=== PATIENT | male | born 1980 | race Caucasian/White ===

== ENCOUNTER 2016-08-23 15:36 | Emergency (ER) | payer MEDICARE, OTHER ==
[~2016-08-23] VITALS: Ht 182.9 cm; Wt 90.0 kg
[~2016-08-23 15:36] MED LIST: ABIL5TAB6 PO; ZOLO50TA PO
[2016-08-23 15:39] VITALS: BP 147/80; PULSE 78; RESP 20; TEMP 97.8; O2SAT 98
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
== END 2016-08-23 18:28 | disposition home or self-care (01) ==
LOC: NETRI 15:36
DX: Z86.59 Personal history of other mental and behavioral disorders (principal); F17.200 Nicotine dependence, unspecified, uncomplicated
CPT/HCPCS: 99281

== ENCOUNTER 2016-09-11 12:29 | Emergency (ER) | payer MEDICARE, OTHER ==
[~2016-09-11] VITALS: Ht 182.9 cm; Wt 95.0 kg
[2016-09-11 12:31] VITALS: BP 139/75; PULSE 104; RESP 16; TEMP 97.8; O2SAT 97
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
== END 2016-09-11 13:50 | disposition home or self-care (01) ==
LOC: NEPE 12:29
DX: F43.21 Adjustment disorder with depressed mood (principal); F17.200 Nicotine dependence, unspecified, uncomplicated; Z86.59 Personal history of other mental and behavioral disorders
CPT/HCPCS: 99281

== ENCOUNTER 2016-10-30 06:51 | Emergency (ER) | payer MEDICARE, OTHER ==
[~2016-10-30] VITALS: Ht 182.9 cm; Wt 82.0 kg
[2016-10-30 06:53] VITALS: BP 137/84; PULSE 96; RESP 16; TEMP 98; O2SAT 98
[2016-10-30] MEDS ORDERED: LEXA5TAB PO (07:24)
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
[2016-10-30 07:42] LABS: AUTOMATED NEUTROPHIL # 11.2 TH/MM3 (1.8-7.7); BASOPHIL # 0.1 TH/MM3 (0-0.2); BASOPHIL % 0.4 % (0.0-2.0); EOSINOPHIL % 0.3 % (0.0-4.0); HEMATOCRIT 47.5 % (39.0-51.0); HEMO FLAGS DIFF FINAL; LYMPH % 14.1 % (9.0-44.0); MEAN CELL VOLUME 85.8 FL (80.0-100.0); MEAN CORPUSCULAR HEMOGLOBIN 29.6 PG (27.0-34.0); MEAN CORPUSCULAR HGB CONC 34.5 % (32.0-36.0); MONO % 6.3 % (0.0-8.0); NEUT % 78.9 % (16.0-70.0); PLATELET COUNT 280 TH/MM3 (150-450); RED BLOOD COUNT 5.53 MIL/MM3 (4.50-5.90); RED CELL DISTRIBUTION WIDTH 13.5 % (11.6-17.2); WHITE BLOOD COUNT 14.1 TH/MM3 (4.0-11.0)
[2016-10-30 07:56] LABS: ALT (GPT) 23 U/L (12-78); ANION GAP 7 MEQ/L (5-15); AST (GOT) 20 U/L (15-37); BICARBONATE 31.7 MEQ/L (21.0-32.0); BLOOD UREA NITROGEN 13 MG/DL (7-18); CHLORIDE 101 MEQ/L (98-107); GLOMERULAR FILTRATION RATE 100 ML/MIN (>89); SODIUM (NA) 140 MEQ/L (136-145)
[2016-10-30 07:58] LABS: ALKALINE PHOSPHATASE 76 U/L (45-117); TOTAL BILIRUBIN ADULT 0.3 MG/DL (0.2-1.0)
[2016-10-30 09:02] LABS: AMPHETAMINE, URINE NEG (NEG); BARBITURATES, URINE NEG (NEG); COCAINE, URINE NEG (NEG)
[2016-10-30 10:00] VITALS: BP 112/69; PULSE 80; RESP 18; TEMP 98.3; O2SAT 100
[2016-10-30 13:12] VITALS: BP 108/61; PULSE 78; RESP 18; O2SAT 100
[2016-10-30 14:55] VITALS: BP 114/78; PULSE 92; RESP 18; TEMP 98.3; O2SAT 98
[2016-10-30 18:10] VITALS: BP 126/61; PULSE 91; RESP 18; TEMP 97.8; O2SAT 99
[2016-10-30 22:00] VITALS: BP 126/67; PULSE 77; RESP 18; O2SAT 99
[2016-10-31 02:00] VITALS: BP 131/59; PULSE 74; RESP 18; O2SAT 99
[2016-10-31 06:00] VITALS: BP 102/58; PULSE 60; RESP 18; O2SAT 97
[2016-10-31 09:40] VITALS: BP 102/58; PULSE 60; RESP 18; O2SAT 97
== END 2016-10-31 11:41 | disposition home or self-care (01) ==
LOC: NEPE 06:51 → NEPJ 10-31 11:41
DX: F32.9 Major depressive disorder, single episode, unspecified (principal); Z79.899 Other long term (current) drug therapy
CPT/HCPCS: 80053; 80307; 85025; 99283

== ENCOUNTER 2016-11-30 13:35 | Inpatient (IN) | payer MEDICARE, OTHER ==
[~2016-11-30] VITALS: Ht 182.9 cm; Wt 74.2 kg
[~2016-11-30 13:35] MED LIST changes: +LEXA5TAB PO; -ZOLO50TA PO
[2016-11-30 13:58] VITALS: BP 146/88; PULSE 112; RESP 20; TEMP 98.6; O2SAT 98
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
[2016-11-30 14:32] LABS: AUTOMATED NEUTROPHIL # 4.6 TH/MM3 (1.8-7.7); BASOPHIL % 0.6 % (0.0-2.0); EOSINOPHIL # 0.2 TH/MM3 (0-0.4); EOSINOPHIL % 2.5 % (0.0-4.0); HEMATOCRIT 49.8 % (39.0-51.0); HEMO FLAGS DIFF FINAL; LYMPH % 26.6 % (9.0-44.0); LYMPHOCYTE # 2.1 TH/MM3 (1.0-4.8); MEAN CELL VOLUME 85.3 FL (80.0-100.0); MEAN CORPUSCULAR HEMOGLOBIN 29.7 PG (27.0-34.0); MEAN CORPUSCULAR HGB CONC 34.8 % (32.0-36.0); MONO % 11.2 % (0.0-8.0); NEUT % 59.1 % (16.0-70.0); PLATELET COUNT 281 TH/MM3 (150-450); RED BLOOD COUNT 5.84 MIL/MM3 (4.50-5.90); RED CELL DISTRIBUTION WIDTH 13.5 % (11.6-17.2); WHITE BLOOD COUNT 7.7 TH/MM3 (4.0-11.0)
[2016-11-30 14:59] LABS: ALT (GPT) 16 U/L (12-78); ANION GAP 8 MEQ/L (5-15); AST (GOT) 12 U/L (15-37); BICARBONATE 27.1 MEQ/L (21.0-32.0); BLOOD UREA NITROGEN 9 MG/DL (7-18); CHLORIDE 106 MEQ/L (98-107); GLOMERULAR FILTRATION RATE 74 ML/MIN (>89); SODIUM (NA) 141 MEQ/L (136-145)
[2016-11-30 15:01] LABS: ACETAMINOPHEN LESS THAN 2.0 MCG/ML (10.0-30.0); ALKALINE PHOSPHATASE 90 U/L (45-117); TOTAL BILIRUBIN ADULT 0.6 MG/DL (0.2-1.0)
[2016-11-30 15:36] LABS: AMPHETAMINE, URINE NEG (NEG); BARBITURATES, URINE NEG (NEG); COCAINE, URINE NEG (NEG)
[2016-11-30 15:46] LABS: BLOOD, URINE NEG (NEG); GLUCOSE,URINE NEG (NEG); HYALINE CAST, URINE 4 /lpf (RARE); KETONE, URINE NEG (NEG); MUCUS URINE MANY /lpf (OCC); NITRITE,URINE NEG (NEG); SQUAMOUS EPITHELIAL CELL URINE <1 /hpf (0-5); URINE COLOR YELLOW (YELLW/STRAW)
[2016-11-30 15:51] LABS: COMMENT (UR) CULT NOT INDICATED; CULTURE IF INDICATED CULT NOT INDICATED
[2016-11-30 16:00] VITALS: BP 130/77; PULSE 98; RESP 18; TEMP 97.7; O2SAT 95
[2016-11-30 18:15] VITALS: BP 125/64; PULSE 100; RESP 18; O2SAT 96
[2016-11-30] MEDS ORDERED: ZIPRASIDONE HCL 60 MG CAP PO ONE (20:15)
[2016-11-30] MEDS ORDERED: diphenhydrAMINE HCL 50 MG CAP PO PRN (20:15)
[2016-11-30] MEDS ORDERED: ALUMINUM/MAGNESIUM/SIMETH 30 ML CUP PO PRN (20:30)
[2016-11-30] MEDS ORDERED: MAGNESIUM HYDROXIDE SUSP 30 ML CUP PO PRN (20:30)
[2016-11-30 21:00] VITALS: BP 130/64; PULSE 82; RESP 16; TEMP 97.6
[2016-11-30] MEDS: REMOVE OLD NICOTINE PATCH T-DERMAL SCH (21:00)
[2016-11-30] MEDS: ZIPRASIDONE HCL 60 MG CAP PO SCH (21:00)
[2016-12-01 05:57] VITALS: BP 118/56; PULSE 79; RESP 18; TEMP 97.5; O2SAT 98
[2016-12-01] MEDS: ZIPRASIDONE HCL 60 MG CAP PO SCH ×2 (08:33→21:00)
[2016-12-01] MEDS: NICOTINE 21 MG/24 HR PATCH T-DERMAL SCH (08:34)
[2016-12-01] MEDS ORDERED: ALUMINUM/MAGNESIUM/SIMETH 30 ML CUP PO PRN (16:00)
[2016-12-01] MEDS ORDERED: hydrOXYzine HCL 50 MG TAB PO PRN (16:00)
[2016-12-01] MEDS ORDERED: diphenhydrAMINE HCL 50 MG CAP PO PRN (16:00)
[2016-12-01] MEDS ORDERED: MAGNESIUM HYDROXIDE SUSP 30 ML CUP PO PRN (16:00)
[2016-12-01] MEDS ORDERED: ACETAMINOPHEN 325 MG TAB PO PRN (16:00)
--- NOTE | 2016-12-01 16:10 | HHI.HP ---
Provisional Diagnosis Admission Date Nov 30, 2016 at 20:49 [place] I. Schizophrenia chronic paranoid type f 20.0 Certification of Person's Competence To Provide Express and Informed Consent I have personally examined Marv Goodson , a person being served at [facility] on, Dec 01, 2016 15:57. Express and informed consent means consent voluntarily given in writing, by a competent person, after sufficient explanation and disclosure of the subject matter involved to enable the person to make a knowing and willful decision without any element of force, fraud, deceit, duress, or other form of constraint or coercion. This person is 18 years of age or older, is not now known to be incompetent to consent to treatment with a guardian advocate, and does not have a health care surrogate or proxy currently making medical treatment decisions. I have found this person to be one of the following: [] Competent to provide express and informed consent, as defined above, for voluntary admission to this facility and is competent to provide express and informed consent for treatment. He/she has the consistent capacity to make well reasoned, willful, and knowing decisions concerning his or her medical or mental health treatment. The person fully and consistently understands the purpose of the admission for examination/placement and is fully capable of personally exercising all rights assured under [place] [] Incompetent to provide express and informed consent to voluntary admission, and this is incompetent to provide express and informed consent to treatment. The person must be transferred to involuntary status and a petition for a guardian advocate filed with the Circuit Court. [xx] Refusing to provide express and informed consent to voluntary admission but is competent to provide express and informed consent for treatment. The person must be discharged or transferred to involuntary status. Form shall be completed within 24 hours of a person's arrival at the receiving facility and filed in the clinical record of each person: 1. Admitted on a voluntary basis 2. Permitted to provide express and informed consent to his/her own treatment 3. Allowed to transfer from involuntary to voluntary status 4. Prior to permitting a person to consent to his or her own treatment after having been previously found incompetent to consent to treatment. History of Present Illness Capacity: Lacks Capacity (patient lacks capacity to agree to admission, patient has capacity to agree with medication) HPI Patient is a 36-year-old white male note was multiple prior contacts has been seen there 3 times prior this year comes here under [place] act by the [place] [employer] dated 11/30/16 at 1:25 PM that document reviewed states pacing the that subject to schizophrenic and off his meds for 2 weeks he is hearing voices and was located at the parking lot yelling at pedestrians patient seen screened in ED urine toxicology negative bladder: Negative. Patient seen in his room on 2700 with nurse Deric. Patient laying in bed patient markedly disheveled scruffy fairly darkly Tanned and Somewhat Malodorous. But Appears His Recognize Me from Prior Contact. States He Lives near a Local Restaurant, Patient Is a Girlfriend, Some Place to Live. Though He Feels He Has To Defend Her Because of People in the Neighborhood. He States He Was Yelling As Mentioned to Address the People in the Neighborhood. He Does Acknowledge Auditory Hallucinations. Patient does admit to noncompliance of medication. Though he states he is a client through [place] act. For now we will restart medications that have been noted on the med reconciliation. I do feel he meets criteria for involuntary hospitalization of the [place] act thus I'll do first opinion requests second opinion that feel his capacity to sign for his medication hopeless be fairly short stay and follow-up outpatient [facility] Review of Systems Constitutional: DENIES: Diaphoretic episodes, Fatigue, Fever, Weight gain, Weight loss, Chills, Dizziness, Change in appetite, Night Sweats Endocrine: DENIES: Heat/cold intolerance, Polydipsia, Polyuria, Polyphagia Eyes: DENIES: Blurred vision, Diplopia, Eye inflammation, Eye pain, Vision loss , Photosensitivity, Double Vision Ears, nose, mouth, throat: DENIES: Tinnitus, Hearing loss, Vertigo, Nasal discharge, Oral lesions, Throat pain, Hoarseness, Ear Pain, Running Nose, Epistaxis, Sinus Pain, Toothache, Odynophagia Respiratory: DENIES: Apneas, Cough, Snoring, Wheezing, Hemoptysis, Sputum production, Shortness of breath Cardiovascular: DENIES: Chest pain, Palpitations, Syncope, Dyspnea on Exertion , PND, Lower Extremity Edema, Orthopnea, Claudication Genitourinary: DENIES: Sexual dysfunction, Urinary frequency, Urinary incontinence, Urgency, Hematuria, Dysuria, Nocturia, Penile Discharge, Testicular Pain, Testicular Swelling Musculoskeletal: DENIES: Joint pain, Muscle aches, Stiffness, Joint Swelling, Back pain, Neck pain Integumentary: DENIES: Abnormal pigmentation, Nail changes, Pruritus, Rash Hematologic/lymphatic: DENIES: Bruising, Lymphadenopathy Immunologic/allergic: DENIES: Eczema, Urticaria Neurologic: DENIES: Abnormal gait, Headache, Localized weakness, Paresthesias, Seizures, Speech Problems, Tremor, Poor Balance Psychiatric: COMPLAINS OF: Hallucinations, Agitation Past Psych History Psychological trauma history Unlit distended patient psychosis Violence risk - others (6 mos) Patient threatening pedestrians passersby Violence risk - self (6 mos) Denies Substance Abuse History Drugs/Alcohol past 12 months Denies numbness somewhat vague about use of marijuana Past Family Social History Coded Allergies: *MDRO Multi-Drug Resistant Organism (Verified Allergy, Unknown, 10/30/16) MRSA Reported Medications Escitalopram (Lexapro)5 Mg Tab5 Mg PO DAILY #30 TAB Ref 0 10/30/16 Current Medications Medications (Trade) Dose Ordered Sig/Pati Route Start Time Stop Time Status Last Admin (Geodon) 60 mg BID PO 11/30/16 21:00 12/01/16 08:33 (Benadryl) 50 mg HS PRN PO 11/30/16 20:15 (Atarax) 50 mg Q6H PRN PO 11/30/16 20:30 (Tylenol) 650 mg Q4H PRN PO 11/30/16 20:30 (Milk Of Magnesia Liq) 30 ml DAILY PRN PO 11/30/16 20:30 (Mag-Al Plus Susp Liq) 30 ml Q6H PRN PO 11/30/16 20:30 (Habitrol 21 Mg Patch.24 Hr) 1 patch DAILY T-DERMAL 12/01/16 09:00 Miscellaneous Information 1 HS T-DERMAL 11/30/16 21:00 Family History Unknown at this time Social History Patient lives with girlfriend Patient's Strengths (min. 2) Patient verbal able to access health care Physical Exam She seen screened in ED exam reviewed and agreed with patient laying quietly in his bed on 2700 and no apparent distress, no respiratory distress. Is darkly suntanned. Patient will 4 extremities without difficulty on no abnormal motor movements noted Vital Signs Vital Signs Date Time Temp Pulse Resp B/P Pulse Ox O2 Delivery O2 Flow Rate FiO2 12/01/16 05:57 97.5 79 18 118/56 98 11/30/16 18:15 Room Air Mental Status Examination Alert oriented thin slender darkly tanned to heartedly disheveled white male with poor eye contact Appearance Disheveled Speech: Rapid, Circumstantial, Tangential Orientation: x3 Memory: Unremarkable Thought Process: Circumstantial, Tangential, Thought Blocking (mildly) Thought Content: Paranoid Language Poor to fair Fund of Knowledge Poor Hallucination Type: Auditory Attention and Concentration: Other (poor) Suicidal Ideation: No Previous Suicide Attempts: No Homicidal Ideation: No (denies) Previous Homicide Attempts: No Insight: Poor Judgment: Poor Affect: Other (decreased range and intensity) Mood: Irritable (somewhat), Other (restricted) Motor Activity: Normal gait Assessment & Plan Problem List: (1) Schizophrenia, paranoid type ICD Code: F20.0 Assessment & Plan Estimated LOS patient does meet criteria for involuntary psychiatric hospitalization I'll do first opinion requests second opinion. I feel he has capacity to sign for his medications. We will restart his medications. Discharge Planning To be determined Request HC Surrog/Guard Advoc?: No Agustin Quigley MD Dec 01, 2016 16:10
[2016-12-01 20:03] VITALS: BP 92/50; PULSE 66; RESP 18; TEMP 97.7; O2SAT 96
[2016-12-01] MEDS: REMOVE OLD NICOTINE PATCH T-DERMAL SCH (21:00)
[2016-12-01] MEDS: hydrOXYzine HCL 50 MG TAB PO PRN (21:09)
[2016-12-02 05:47] VITALS: BP 95/51; PULSE 68; RESP 17; TEMP 97.3; O2SAT 98
[2016-12-02] MEDS: NICOTINE 21 MG/24 HR PATCH T-DERMAL SCH (09:00)
--- NOTE | 2016-12-02 09:40 | HHI.PYPN ---
Subjective Remarks Patient seen in [facility] with nurse Irasema. Patient continues somewhat intense silly childlike thus singly wants to go home but the same time appears to be responding to internal stimuli looking over his right shoulder. He is winking at me with his right eye then lifting up her shirt the looking down his trousers. Will increase Geodon to 80 mg twice a day.. Patient remains quite psychotic and delusional Review of Systems Except as stated in HPI: all other systems reviewed are Neg Objective Alert: Yes [place]: Person, Place Mood: Anxious, Calm Affect: Other (slight increase range and intensity) Memory Intact: Comment (fair) Hallucinations: Auditory (appears to be responding to internal stimuli) Delusions: Yes Delusion Type: Grandiose (somewhat) Suicidal: Ideation (denies) Homicidal: Ideation (denies) Insight/Judgment Poor Vitals/IOs Vital Signs Date Time Temp Pulse Resp B/P Pulse Ox O2 Delivery O2 Flow Rate FiO2 12/02/16 05:47 97.3 68 17 95/51 98 11/30/16 18:15 Room Air Assessment & Plan Problem List: (1) Schizophrenia, paranoid type ICD Code: F20.0 Assessment & Plan Estimated LOS: days patient remains quite psychotic and delusional, C medication adjustments above Justification for Cont. Inpt. At this time patient will decompensate if placed in a lower level of care Discharge Planning To be determined Request HC Surrog/Guard Advoc?: Agustin Coles MD Dec 02, 2016 09:40
--- NOTE | 2016-12-02 17:51 | PD.CONS ---
Provisional Diagnosis Admission Date Nov 30, 2016 at 20:49 [place] I. Schizophrenia chronic paranoid type f 20.0 History of Present Illness Service Psychiatry Consult Requested By Primary Care Physician No Primary Care Physician HPI Dr. Quigley's note:Patient is a 36-year-old white male note was multiple prior contacts has been seen there 3 times prior this year comes here under [place] act by the [employer] dated 11/30/16 at 1:25 PM that document reviewed states pacing the that subject to schizophrenic and off his meds for 2 weeks he is hearing voices and was located at the parking lot yelling at pedestrians patient seen screened in ED urine toxicology negative bladder: Negative. Patient seen in his room on 2700 with nurse Deric. Patient laying in bed patient markedly disheveled scruffy fairly darkly Tanned and Somewhat Malodorous. But Appears His Recognize Me from Prior Contact. States He Lives near a Local Restaurant, Patient Is a Girlfriend, Some Place to Live. Though He Feels He Has To Defend Her Because of People in the Neighborhood. He States He Was Yelling As Mentioned to Address the People in the Neighborhood. He Does Acknowledge Auditory Hallucinations. Patient does admit to noncompliance of medication. Though he states he is a client through [place] act. For now we will restart medications that have been noted on the med reconciliation. I do feel he meets criteria for involuntary hospitalization of the [place] act thus I'll do first opinion requests second opinion that feel his capacity to sign for his medication hopeless be fairly short stay and follow-up outpatient [facility] Pt. remains psychotic with paranoid delusions. Feels there are people in the neighborhood who wish to harm his girlfriend. Cont to report aud halllucinations. Review of Systems Except as stated in HPI: all other systems reviewed are Neg Past Family Social History Coded Allergies: *MDRO Multi-Drug Resistant Organism (Verified Allergy, Unknown, 10/30/16) MRSA Reported Medications Escitalopram (Lexapro)5 Mg Tab5 Mg PO DAILY #30 TAB Ref 0 10/30/16 Current Medications Medications (Trade) Dose Ordered Sig/Pati Route Start Time Stop Time Status Last Admin (Benadryl) 50 mg HS PRN PO 11/30/16 20:15 (Atarax) 50 mg Q6H PRN PO 11/30/16 20:30 6/11/17 21:09 (Tylenol) 650 mg Q4H PRN PO 11/30/16 20:30 (Milk Of Magnesia Liq) 30 ml DAILY PRN PO 11/30/16 20:30 (Mag-Al Plus Susp Liq) 30 ml Q6H PRN PO 11/30/16 20:30 (Habitrol 21 Mg Patch.24 Hr) 1 patch DAILY T-DERMAL 12/01/16 09:00 Miscellaneous Information 1 HS T-DERMAL 11/30/16 21:00 (Geodon) 80 mg BID PO 12/02/16 21:00 Family History Pos for schiz Social History Unemployed. Receives disability. Patient's Strengths (min. 2) Patient verbal able to access health care Physical Exam Vital Signs Vital Signs Date Time Temp Pulse Resp B/P Pulse Ox O2 Delivery O2 Flow Rate FiO2 12/02/16 05:47 97.3 68 17 95/51 98 11/30/16 18:15 Room Air Mental Status Examination Speech: Rapid, Circumstantial, Tangential Orientation: x3 Memory: Unremarkable Thought Process: Loose Association, Tangential, Thought Blocking (mildly) Thought Content: Paranoid Hallucination Type: Auditory Attention and Concentration: Other (poor) Suicidal Ideation: No Previous Suicide Attempts: No Homicidal Ideation: No (denies) Previous Homicide Attempts: No Insight: Poor Judgment: Poor Affect: Other (decreased range and intensity) Mood: Irritable (somewhat), Other (restricted) Motor Activity: Normal gait Assessment & Plan Problem List: (1) Schizophrenia, paranoid type ICD Code: F20.0 Assessment & Plan Estimated LOS: days Agree with civil committment and treatment. Request HC Surrog/Guard Advoc?: No Mart Andrade MD Dec 02, 2016 17:51
[2016-12-02 17:59] VITALS: BP 100/68; PULSE 75; RESP 18; TEMP 97.3; O2SAT 97
[2016-12-02] MEDS: REMOVE OLD NICOTINE PATCH T-DERMAL SCH (21:00)
[2016-12-02] MEDS: ZIPRASIDONE HCL 80 MG CAP PO SCH (21:05)
[2016-12-03 05:44] VITALS: BP 98/52; PULSE 81; RESP 18; TEMP 98.8; O2SAT 97
[2016-12-03] MEDS: ZIPRASIDONE HCL 80 MG CAP PO SCH ×2 (09:00→21:36)
[2016-12-03] MEDS: NICOTINE 21 MG/24 HR PATCH T-DERMAL SCH (09:11)
--- NOTE | 2016-12-03 11:49 | HHI.PYPN ---
Subjective Remarks Patient seen in [facility] with floor staff, chart review, patient compliant medications. Patient still showing poor hygiene as if he has not showered yet. He continues markedly distracted acknowledging continued auditory hallucinations of a somewhat disturbing nature. For now continue treatment Review of Systems Except as stated in HPI: all other systems reviewed are Neg Objective Alert: Yes [place]: Person, Place Mood: Anxious, Calm Affect: Other (slight increase range and intensity) Memory Intact: Comment (fair) Hallucinations: Auditory (appears to be responding to internal stimuli) Delusions: Yes Delusion Type: Grandiose (somewhat) Suicidal: Ideation (denies) Homicidal: Ideation (denies) Insight/Judgment Poor Vitals/IOs Vital Signs Date Time Temp Pulse Resp B/P Pulse Ox O2 Delivery O2 Flow Rate FiO2 12/03/16 05:44 98.8 81 18 98/52 97 11/30/16 18:15 Room Air Assessment & Plan Problem List: (1) Schizophrenia, paranoid type ICD Code: F20.0 Assessment & Plan Estimated LOS: days patient continues quite psychotic auditory hallucinations. Compliant medications. For now continue treatment Justification for Cont. Inpt. At this time patient will decompensate if placed on the lower level of care Discharge Planning To be determined Request HC Surrog/Guard Advoc?: No Agustin Quigley MD Dec 03, 2016 11:49
[2016-12-03 18:54] VITALS: BP 113/63; PULSE 59; RESP 18; TEMP 97.1; O2SAT 99
[2016-12-03] MEDS: REMOVE OLD NICOTINE PATCH T-DERMAL SCH (21:00)
[2016-12-04 05:43] VITALS: BP 99/62; PULSE 92; RESP 17; TEMP 97.9; O2SAT 98
[2016-12-04] MEDS: NICOTINE 21 MG/24 HR PATCH T-DERMAL SCH (08:14)
[2016-12-04] MEDS: ZIPRASIDONE HCL 80 MG CAP PO SCH ×2 (08:15→20:20)
--- NOTE | 2016-12-04 11:43 | HHI.PYPN ---
Subjective Remarks Patient seen in [facility] with nurse Edilberto and family practice resident Star. Patient just got out of the shower appears he is not a fairly decent job of washing himself and his hair. He is compliant with medication. Auditory hallucinations continue but are somewhat decreased intensity the continues a bizarreness and paranoia with him at this time. For now continue treatment Objective Alert: Yes [place]: Person, Place Mood: Anxious, Calm Affect: Other (slight increase range and intensity) Memory Intact: Comment (fair) Hallucinations: Auditory (appears to be responding to internal stimuli) Delusions: Yes Delusion Type: Grandiose (somewhat) Suicidal: Ideation (denies) Homicidal: Ideation (denies) Insight/Judgment Poor Vitals/IOs Vital Signs Date Time Temp Pulse Resp B/P Pulse Ox O2 Delivery O2 Flow Rate FiO2 12/04/16 05:43 97.9 92 17 99/62 98 11/30/16 18:15 Room Air Assessment & Plan Problem List: (1) Schizophrenia, paranoid type ICD Code: F20.0 Assessment & Plan Estimated LOS: days patient continue psychotic somewhat disorganized. Continues to make symptoms there to protect type hand gestures, the voices continue also though it appears she has been no significant behavioral problems Justification for Cont. Inpt. At this time patient will decompensate if place to the lower level of care Discharge Planning To be determined Request HC Surrog/Guard Advoc?: Agustin Coles MD Dec 04, 2016 11:42
[2016-12-04 18:23] VITALS: BP 123/68; PULSE 90; RESP 16; TEMP 99.2; O2SAT 98
[2016-12-04] MEDS: REMOVE OLD NICOTINE PATCH T-DERMAL SCH (20:20)
[2016-12-05 05:57] VITALS: BP 106/75; PULSE 85; RESP 16; TEMP 97.8; O2SAT 98
[2016-12-05] MEDS: ZIPRASIDONE HCL 80 MG CAP PO SCH ×2 (09:17→21:00)
[2016-12-05] MEDS: NICOTINE 21 MG/24 HR PATCH T-DERMAL SCH (09:18)
--- NOTE | 2016-12-05 13:57 | HHI.PYPN ---
Subjective Remarks Patient [place]. [place] act has been [place], patient states is willing to sign voluntary stay voluntarily get further treatment. Thus I will lift [place] act and allow the patient to sign voluntary. Continues somewhat disorganized responding to internal stimuli intense making some stereotypic gestures with his hands. Is compliant with his medication Review of Systems Except as stated in HPI: all other systems reviewed are Neg Objective Alert: Yes [place]: Person, Place Mood: Anxious, Calm Affect: Other (slight increase range and intensity) Memory Intact: Comment (fair) Hallucinations: Auditory (appears to be responding to internal stimuli) Delusions: Yes Delusion Type: Grandiose (somewhat) Suicidal: Ideation (denies) Homicidal: Ideation (denies) Insight/Judgment Poor Vitals/IOs Vital Signs Date Time Temp Pulse Resp B/P Pulse Ox O2 Delivery O2 Flow Rate FiO2 12/05/16 05:57 97.8 85 16 106/75 98 Assessment & Plan Problem List: (1) Schizophrenia, paranoid type ICD Code: F20.0 Assessment & Plan Estimated LOS: days patient continue psychotic and delusional, though compliant medications. [place] act was [place] [address] patient will be allowed to sign voluntary patient states she is willing to do that Justification for Cont. Inpt. At this time patient will decompensate then placed in a lower level of care Discharge Planning To be determined Request HC Surrog/Guard Advoc?: No Agustin Quigley MD Dec 05, 2016 13:57
[2016-12-05 16:54] VITALS: BP 121/59; PULSE 73; RESP 17; TEMP 98.3; O2SAT 99
[2016-12-05] MEDS: REMOVE OLD NICOTINE PATCH T-DERMAL SCH (21:00)
[2016-12-06 05:35] VITALS: BP 105/54; PULSE 93; RESP 18; TEMP 97.3; O2SAT 99
[2016-12-06] MEDS: ZIPRASIDONE HCL 80 MG CAP PO SCH ×2 (08:27→21:12)
[2016-12-06] MEDS: NICOTINE 21 MG/24 HR PATCH T-DERMAL SCH (08:27)
--- NOTE | 2016-12-06 13:33 | HHI.PYPN ---
Subjective Remarks Patient seen in his room with floor staff, chart reviewed, patient compliant medications, patient continues to show some delays in his responses as if responding to internal stimuli he continues to do some stereotype hand movements will increase Geodon to 120 mg twice a day Review of Systems Except as stated in HPI: all other systems reviewed are Neg Objective Alert: Yes [place]: Person, Place Mood: Anxious, Calm Affect: Other (slight increase range and intensity) Memory Intact: Comment (fair) Hallucinations: Auditory (appears to be responding to internal stimuli) Delusions: Yes Delusion Type: Grandiose (somewhat) Suicidal: Ideation (denies) Homicidal: Ideation (denies) Insight/Judgment Poor Vitals/IOs Vital Signs Date Time Temp Pulse Resp B/P Pulse Ox O2 Delivery O2 Flow Rate FiO2 12/06/16 05:35 97.3 93 18 105/54 99 Assessment & Plan Problem List: (1) Schizophrenia, paranoid type ICD Code: F20.0 Assessment & Plan Estimated LOS: days patient continues psychotic delusional with vague auditory hallucinations see medication adjustment above Justification for Cont. Inpt. At this time patient decompensate and placed in a lower level of care Discharge Planning To be determined Request HC Surrog/Guard Advoc?: No Agustin Quigley MD Dec 06, 2016 13:33
[2016-12-06 17:26] VITALS: BP 107/57; PULSE 76; RESP 18; TEMP 97.4; O2SAT 97
[2016-12-06] MEDS: REMOVE OLD NICOTINE PATCH T-DERMAL SCH (21:00)
[2016-12-07 06:08] VITALS: BP 109/62; PULSE 90; RESP 18; TEMP 98.7; O2SAT 95
[2016-12-07] MEDS: ZIPRASIDONE HCL 80 MG CAP PO SCH ×2 (08:47→20:08)
[2016-12-07] MEDS: NICOTINE 21 MG/24 HR PATCH T-DERMAL SCH (08:48)
--- NOTE | 2016-12-07 16:45 | HHI.PYPN ---
Subjective Remarks Patient was seen and case discussed with nursing. Patient remains very disheveled with poor insight into his admission. He is paranoid disorganized and somewhat hyperverbal. He leaves mid interview which nursing says is an improvement with him. Denies he was yelling that he wanted to kill people says that in fact he was trying to report a crime and the police were not listening Objective Alert: Yes [place]: Person, Place Mood: Anxious Affect: Other (slight increase range and intensity) Memory Intact: Comment (fair) Hallucinations: Auditory (appears to be responding to internal stimuli) Delusions: Yes Delusion Type: Paranoid Suicidal: Ideation (denies) Homicidal: Ideation (denies) Insight/Judgment Poor Vitals/IOs Vital Signs Date Time Temp Pulse Resp B/P Pulse Ox O2 Delivery O2 Flow Rate FiO2 12/07/16 06:08 98.7 90 18 109/62 95 Assessment & Plan Problem List: (1) Schizophrenia, paranoid type ICD Code: F20.0 Assessment & Plan Continue current treatment plan Justification for Cont. Inpt. Patient will decompensate in a less restrictive setting Request HC Surrog/Guard Advoc?: No Bertin Casarez DO Dec 07, 2016 16:45
[2016-12-07 18:43] VITALS: BP 107/67; PULSE 76; RESP 18; TEMP 97; O2SAT 98
[2016-12-07] MEDS: REMOVE OLD NICOTINE PATCH T-DERMAL SCH (20:08)
[2016-12-07] MEDS ORDERED: ZIPRASIDONE HCL 20 MG CAP PO ONE (22:00)
[2016-12-08 06:08] VITALS: BP 90/59; PULSE 85; RESP 18; TEMP 97.2; O2SAT 97
[2016-12-08] MEDS: ZIPRASIDONE HCL 60 MG CAP PO SCH ×2 (08:40→17:15)
[2016-12-08] MEDS: NICOTINE 21 MG/24 HR PATCH T-DERMAL SCH (08:43)
--- NOTE | 2016-12-08 16:52 | HHI.PYPN ---
Subjective Remarks Patient was seen and case discussed with nursing. Patient remains disheveled and preoccupied. Nursing is noted and talking to and laughing to himself. He is brief and vague during the interview. Perseverative on discharge. Poor insight into admission. Tolerating medications well Objective Alert: Yes [place]: Person, Place Mood: Anxious Affect: Other (slight increase range and intensity) Memory Intact: Comment (fair) Hallucinations: Auditory (appears to be responding to internal stimuli) Delusions: Yes Delusion Type: Paranoid Suicidal: Ideation (denies) Homicidal: Ideation (denies) Insight/Judgment Poor Vitals/IOs Vital Signs Date Time Temp Pulse Resp B/P Pulse Ox O2 Delivery O2 Flow Rate FiO2 12/08/16 06:08 97.2 85 18 90/59 97 Assessment & Plan Problem List: (1) Schizophrenia, paranoid type ICD Code: F20.0 Assessment & Plan Continue current treatment plan Justification for Cont. Inpt. Patient will decompensate and less restrictive setting Request HC Surrog/Guard Advoc?: No Bertin Casarez DO Dec 08, 2016 16:52
[2016-12-08] MEDS: REMOVE OLD NICOTINE PATCH T-DERMAL SCH (21:00)
[2016-12-09 06:13] VITALS: BP 105/59; PULSE 70; RESP 18; TEMP 97.9; O2SAT 95
[2016-12-09] MEDS: NICOTINE 21 MG/24 HR PATCH T-DERMAL SCH (09:00)
[2016-12-09] MEDS: ZIPRASIDONE HCL 60 MG CAP PO SCH ×2 (09:00→17:55)
--- NOTE | 2016-12-09 11:56 | HHI.PYPN ---
Subjective Remarks Patient seen in [facility] with floor staff and medical student Dre. Patient continues to talk to himself laughing and gesturing. Continue somewhat disheveled is brown hair sticking straight up from his scalp. There is thought blocking noted he is quite distracted with his replies. For now continue treatment Review of Systems Except as stated in HPI: all other systems reviewed are Neg Objective Alert: Yes [place]: Person, Place Mood: Anxious Affect: Other (slight increase range and intensity) Memory Intact: Comment (fair) Hallucinations: Auditory (appears to be responding to internal stimuli) Delusions: Yes Delusion Type: Paranoid Suicidal: Ideation (denies) Homicidal: Ideation (denies) Insight/Judgment Very poor Vitals/IOs Vital Signs Date Time Temp Pulse Resp B/P Pulse Ox O2 Delivery O2 Flow Rate FiO2 12/09/16 06:13 97.9 70 18 105/59 95 Assessment & Plan Problem List: (1) Schizophrenia, paranoid type ICD Code: F20.0 Assessment & Plan Estimated LOS: days patient continue psychotic and paranoid, compliant medications. For now continue treatment Justification for Cont. Inpt. At this time patient will decompensate the placed in a lower level of care Discharge Planning To be determined Request HC Surrog/Guard Advoc?: No Agustin Quigley MD Dec 09, 2016 11:56
--- NOTE | 2016-12-09 15:49 | PD.TTN ---
Present for Treatment Team Treatment Team Staff: Provider (Dr. Quigley), Nurse (Kay Huffman RN), Psych Therapist (CHRISTOPHER Mckoy) Patient Problems 1. Discharge planning 2. Medication compliance 3. Knowledge deficit 4. Lack of coping skills Progress Toward Goals Provider Input: Pt medication regiment will continue to be adjusted to assist with further stabilization of symptoms. Nurse Input: Pt continues to appear anxious, psychotic, cooperative, appropriate and discharge focused. He is visible on unit but withdrawn to self. No noted aggressive behavior. Pt is compilant with his medication regiment. Psych Therapist Input: Pt continues to appear bizarre, to be responding to internal stimuli, bizarre, disorganized, compliant and with poor insight into condition. Pt appears to utilize coping skills however as he does not act out on unit and presents as no behavioral management problem on unit. He will return home once discharged. Documentation Scribe: CHRISTOPHER Mckoy Date Resolved: Dec 09, 2016 Jeevan Cárdenas Dec 09, 2016 15:49
[2016-12-09] MEDS: REMOVE OLD NICOTINE PATCH T-DERMAL SCH (21:00)
[2016-12-10 00:48] VITALS: BP 100/58; PULSE 82; RESP 18; TEMP 97.5; O2SAT 97
[2016-12-10 05:49] VITALS: BP 110/60; PULSE 78; RESP 18; TEMP 97.9; O2SAT 97
[2016-12-10] MEDS: NICOTINE 21 MG/24 HR PATCH T-DERMAL SCH (08:10)
[2016-12-10] MEDS: ZIPRASIDONE HCL 60 MG CAP PO SCH (08:10)
--- NOTE | 2016-12-10 10:02 | HHI.PYPN ---
Subjective Remarks Patient seen in [facility] with nurse Louise and medical student Dre, chart reviewed. Patient continues to hallucinate acknowledging the auditory hallucinations but minimizing them. He is also noted to be talking to himself and gesturing while walking in the halls. He continues somewhat bizarre with this haircut is fairly long care spite all over his head. It appears the Geodon as a solo medication is not helping him sufficiently. We will condense the Geodon to at bedtime at 240 mg and add Respinol M tab 2 mg 8 AM and 6 PM Review of Systems Except as stated in HPI: all other systems reviewed are Neg Objective Alert: Yes [place]: Person, Place Mood: Anxious Affect: Other (slight increase range and intensity) Memory Intact: Comment (fair) Hallucinations: Auditory (appears to be responding to internal stimuli) Delusions: Yes Delusion Type: Paranoid Suicidal: Ideation (denies) Homicidal: Ideation (denies) Insight/Judgment Poor Vitals/IOs Vital Signs Date Time Temp Pulse Resp B/P Pulse Ox O2 Delivery O2 Flow Rate FiO2 12/10/16 05:49 97.9 78 18 110/60 97 Assessment & Plan Problem List: (1) Schizophrenia, paranoid type ICD Code: F20.0 Assessment & Plan Estimated LOS: days patient remains quite psychotic and delusional with auditory hallucinations, she medication adjustments about Justification for Cont. Inpt. This time patient will decompensate if placed in a lower level of care Discharge Planning To be determined Request HC Surrog/Guard Advoc?: No Agustin Quigley MD Dec 10, 2016 10:02
[2016-12-10] MEDS: risperiDONE ODT 2 MG TAB PO SCH (17:25)
[2016-12-10 18:09] VITALS: BP 99/60; PULSE 85; RESP 19; TEMP 97.7; O2SAT 98
[2016-12-10] MEDS ORDERED: ZIPRASIDONE HCL 60 MG CAP PO ONE (21:00)
[2016-12-10] MEDS: REMOVE OLD NICOTINE PATCH T-DERMAL SCH (21:00)
[2016-12-11 06:18] VITALS: BP 103/62; PULSE 73; RESP 16; TEMP 97.6; O2SAT 98
[2016-12-11] MEDS: risperiDONE ODT 2 MG TAB PO SCH ×2 (08:00→18:46)
[2016-12-11] MEDS: NICOTINE 21 MG/24 HR PATCH T-DERMAL SCH (08:41)
--- NOTE | 2016-12-11 13:56 | HHI.PYPN ---
Subjective Remarks Patient seen in [facility] with floor staff, chart review, patient compliant medications. Patient continues to be markedly malodorous though he states he did take a shower. Staff states that he barely with his face. I did encourage him to take a real sore the shower he continues to verify auditory hallucinations but they do not seem to be impinging on him very much. For now continue treatment Review of Systems Except as stated in HPI: all other systems reviewed are Neg Objective Alert: Yes [place]: Person, Place Mood: Anxious Affect: Other (slight increase range and intensity) Memory Intact: Comment (fair) Hallucinations: Auditory (appears to be responding to internal stimuli) Delusions: Yes Delusion Type: Paranoid Suicidal: Ideation (denies) Homicidal: Ideation (denies) Insight/Judgment Very poor Vitals/IOs Vital Signs Date Time Temp Pulse Resp B/P Pulse Ox O2 Delivery O2 Flow Rate FiO2 12/11/16 06:18 97.6 73 16 103/62 98 Assessment & Plan Problem List: (1) Schizophrenia, paranoid type ICD Code: F20.0 Assessment & Plan Estimated LOS: days patient continue psychotic somewhat delusional, with very poor hygiene is markedly motorist. Though he is compliant with medications. Will encourage appropriate showering Justification for Cont. Inpt. At this time patient will decompensate the place to the lower level of care Discharge Planning To be determined Request HC Surrog/Guard Advoc?: No Agustin Quigley MD Dec 11, 2016 13:56
[2016-12-11] MEDS: REMOVE OLD NICOTINE PATCH T-DERMAL SCH (21:00)
[2016-12-11] MEDS: ZIPRASIDONE HCL 60 MG CAP PO SCH (21:01)
[2016-12-12 06:00] VITALS: BP 111/61; PULSE 87; RESP 18; TEMP 97.6; O2SAT 98
[2016-12-12] MEDS: risperiDONE ODT 2 MG TAB PO SCH ×2 (08:00→16:26)
[2016-12-12] MEDS: NICOTINE 21 MG/24 HR PATCH T-DERMAL SCH (08:35)
--- NOTE | 2016-12-12 16:43 | HHI.PYPN ---
Subjective Remarks Patient seen in [facility] with nurse Irasema and medical student Dre, and the cold his case manager specialist from [facility] patient continues to respond to internal stimuli though he says is somewhat less. Continues vague stereotypic hand motions. This talk about going to live with his girlfriend. system manager states there is no present girlfriend. For now will offer patient and vagueness is stated to 34 mg IM tomorrow continue his oral Respinol. He also also is asking for a haircut will allow that Girlfriend Review of Systems Except as stated in HPI: all other systems reviewed are Neg Objective Alert: Yes [place]: Person, Place Mood: Anxious Affect: Other (slight increase range and intensity) Memory Intact: Comment (fair) Hallucinations: Auditory (appears to be responding to internal stimuli) Delusions: Yes Delusion Type: Paranoid Suicidal: Ideation (denies) Homicidal: Ideation (denies) Insight/Judgment Poor Vitals/IOs Vital Signs Date Time Temp Pulse Resp B/P Pulse Ox O2 Delivery O2 Flow Rate FiO2 12/12/16 06:00 97.6 87 18 111/61 98 Assessment & Plan Problem List: (1) Schizophrenia, paranoid type ICD Code: F20.0 Assessment & Plan Estimated LOS: days patient continues psychotic delusional though some what soft with the paranoia. Compliant medications. Will give patient here, will also offer him vagueness of statement to 34 mg Justification for Cont. Inpt. This time patient decompensate then placed in a lower level of care Discharge Planning To be determined Request HC Surrog/Guard Advoc?: No Agustin Quigley MD Dec 12, 2016 16:43
[2016-12-12 17:58] VITALS: BP 104/58; PULSE 67; RESP 18; TEMP 97.5; O2SAT 100
[2016-12-12] MEDS: ZIPRASIDONE HCL 60 MG CAP PO SCH (20:33)
[2016-12-12] MEDS: REMOVE OLD NICOTINE PATCH T-DERMAL SCH (20:37)
[2016-12-13 06:01] VITALS: BP 111/63; PULSE 110; RESP 18; TEMP 98; O2SAT 98
[2016-12-13] MEDS: risperiDONE ODT 2 MG TAB PO SCH ×2 (08:00→16:58)
[2016-12-13] MEDS ORDERED: PALIPERIDONE PALMITATE 234 MG/1.5 ML SYRINGE IM ONE (08:00)
[2016-12-13] MEDS: NICOTINE 21 MG/24 HR PATCH T-DERMAL SCH (08:33)
--- NOTE | 2016-12-13 15:35 | HHI.PYPN ---
Subjective Remarks Patient seen in his room with nurse Irasema and medical student Dre. Chart reviewed. Patient compliant medications though showing some resistance to taking the long-acting IM. However after discussing this with him he agreed to take the IM medication. Patient also showing some little better hygiene with his haircut. He is vague about persistent voices those vigilance is somewhat decreased Review of Systems Except as stated in HPI: all other systems reviewed are Neg Objective Alert: Yes [place]: Person, Place Mood: Anxious Affect: Other (slight increase range and intensity) Memory Intact: Comment (fair) Hallucinations: Auditory (appears to be responding to internal stimuli) Delusions: Yes Delusion Type: Paranoid Suicidal: Ideation (denies) Homicidal: Ideation (denies) Insight/Judgment Poor Vitals/IOs Vital Signs Date Time Temp Pulse Resp B/P Pulse Ox O2 Delivery O2 Flow Rate FiO2 12/13/16 06:01 98.0 110 18 111/63 98 Assessment & Plan Problem List: (1) Schizophrenia, paranoid type ICD Code: F20.0 Assessment & Plan Estimated LOS: days patient continue psychotic with delusional though softer. Compliant medications. For now continue treatment Justification for Cont. Inpt. At this time patient will decompensate the place a lower level of care Discharge Planning To be determined Request HC Surrog/Guard Advoc?: No Agustin Quigley MD Dec 13, 2016 15:35
[2016-12-13 16:15] VITALS: BP 122/65; PULSE 94; RESP 18; TEMP 98; O2SAT 99
[2016-12-13] MEDS: REMOVE OLD NICOTINE PATCH T-DERMAL SCH (21:00)
[2016-12-13] MEDS: ZIPRASIDONE HCL 60 MG CAP PO SCH (21:07)
[2016-12-14 05:53] VITALS: BP 106/58; PULSE 77; RESP 17; TEMP 97.3; O2SAT 99
[2016-12-14] MEDS: risperiDONE ODT 2 MG TAB PO SCH ×2 (09:19→17:31)
[2016-12-14] MEDS: NICOTINE 21 MG/24 HR PATCH T-DERMAL SCH (09:20)
--- NOTE | 2016-12-14 14:18 | HHI.PYPN ---
Subjective Remarks Pt seen and discussed with staff. Pt is compliant with medications and reports that thought are clearer. He has been pacing hallways and does not interact with peers or staff. He states that he is [place] and that is related to the police. He launches into a riveting diatribe about a conspiracy that involves both the police and his neighbors. He becomes increasingly paranoid and loose with extended interviewing. No SI/HI. Objective Alert: Yes [place]: Person, Place Mood: Anxious Affect: Other (intense gaze) Memory Intact: Comment (fair) Hallucinations: Auditory (appears to be responding to internal stimuli) Delusions: Yes Delusion Type: Paranoid Suicidal: Ideation (denies) Homicidal: Ideation (denies) Insight/Judgment poor Vitals/IOs Vital Signs Date Time Temp Pulse Resp B/P Pulse Ox O2 Delivery O2 Flow Rate FiO2 12/14/16 05:53 97.3 77 17 106/58 99 Assessment & Plan Problem List: (1) Schizophrenia, paranoid type ICD Code: F20.0 Assessment & Plan Continue current tx plan. Estimated LOS: days Justification for Cont. Inpt. psychosis Request HC Surrog/Guard Advoc?: No Hailey Pinto MD Dec 14, 2016 14:18
[2016-12-14 18:13] VITALS: BP 107/62; PULSE 65; RESP 18; TEMP 97.5; O2SAT 99
[2016-12-14] MEDS: ZIPRASIDONE HCL 60 MG CAP PO SCH (20:21)
[2016-12-14] MEDS: REMOVE OLD NICOTINE PATCH T-DERMAL SCH (20:21)
[2016-12-15 06:13] VITALS: BP 111/62; PULSE 100; RESP 17; TEMP 98; O2SAT 97
[2016-12-15] MEDS: risperiDONE ODT 2 MG TAB PO SCH ×2 (08:36→18:34)
[2016-12-15] MEDS: NICOTINE 21 MG/24 HR PATCH T-DERMAL SCH (08:36)
--- NOTE | 2016-12-15 13:55 | HHI.PYPN ---
Subjective Remarks Pt seen and discussed with staff. He is compliant with medications and denies side effects. He remains paranoid and delusional with racing thoughts. He asks MD to remove from his record that he studied psychology at [employer] because "I studied for a B.S. in psychology and now I'm on a psych [employer] and naturally that' s why they did it. Please take it out now." Objective Alert: Yes [place]: Person, Place Mood: Anxious Affect: Other (intense gaze) Memory Intact: Comment (fair) Hallucinations: Auditory (appears to be responding to internal stimuli) Delusions: Yes Delusion Type: Paranoid Suicidal: Ideation (denies) Homicidal: Ideation (denies) Insight/Judgment poor Vitals/IOs Vital Signs Date Time Temp Pulse Resp B/P Pulse Ox O2 Delivery O2 Flow Rate FiO2 12/15/16 06:13 98.0 100 17 111/62 97 Assessment & Plan Problem List: (1) Schizophrenia, paranoid type ICD Code: F20.0 Assessment & Plan Continue current tx plan. Estimated LOS: days Justification for Cont. Inpt. psychosis Request HC Surrog/Guard Advoc?: Hailey Tapia MD Dec 15, 2016 13:54
[2016-12-15 20:00] VITALS: BP 104/60; PULSE 90; RESP 17; TEMP 97; O2SAT 97
[2016-12-15] MEDS: REMOVE OLD NICOTINE PATCH T-DERMAL SCH (20:29)
[2016-12-15] MEDS: ZIPRASIDONE HCL 60 MG CAP PO SCH (20:29)
[2016-12-15] MEDS: hydrOXYzine HCL 50 MG TAB PO PRN (20:29)
[2016-12-16 06:00] VITALS: BP 113/65; PULSE 73; RESP 18; TEMP 98; O2SAT 98
[2016-12-16] MEDS: NICOTINE 21 MG/24 HR PATCH T-DERMAL SCH ×2 (08:50→09:32)
[2016-12-16] MEDS: risperiDONE ODT 2 MG TAB PO SCH ×2 (09:32→18:23)
--- NOTE | 2016-12-16 17:19 | HHI.PYPN ---
Subjective Remarks Patient seen in [facility] with nurse giovani and medical student Dre. Chart reviewed. Patient compliant medication. Patient continues to auditory hallucinations somewhat bizarre delusions related to them. Still talking about his girlfriend that we have no documentation of existing. For now continue treatment Review of Systems Except as stated in HPI: all other systems reviewed are Neg Objective Alert: Yes [place]: Person, Place Mood: Anxious Affect: Other (intense gaze) Memory Intact: Comment (fair) Hallucinations: Auditory (appears to be responding to internal stimuli) Delusions: Yes Delusion Type: Paranoid Suicidal: Ideation (denies) Homicidal: Ideation (denies) Insight/Judgment Very poor Vitals/IOs Vital Signs Date Time Temp Pulse Resp B/P Pulse Ox O2 Delivery O2 Flow Rate FiO2 12/16/16 06:00 98.0 73 18 113/65 98 Assessment & Plan Problem List: (1) Schizophrenia, paranoid type ICD Code: F20.0 Assessment & Plan Estimated LOS: days patient continue psychotic and delusional for now continue treatment Justification for Cont. Inpt. At this time patient decompensate if placed a lower level of care Discharge Planning To be determined Request HC Surrog/Guard Advoc?: No Agustin Quigley MD Dec 16, 2016 17:19
[2016-12-16 18:46] VITALS: BP 102/60; PULSE 91; RESP 18; TEMP 97.9; O2SAT 99
[2016-12-16] MEDS: REMOVE OLD NICOTINE PATCH T-DERMAL SCH (20:56)
[2016-12-16] MEDS: ZIPRASIDONE HCL 60 MG CAP PO SCH (20:56)
[2016-12-17 06:09] VITALS: BP 100/57; PULSE 65; RESP 18; TEMP 98.9; O2SAT 97
[2016-12-17] MEDS: risperiDONE ODT 2 MG TAB PO SCH (08:00)
--- NOTE | 2016-12-17 11:34 | HHI.PYPN ---
Subjective Remarks Patient seen on unit with medical student Dre, patient continues to pace the halls, talks to himself, though there is some less gesturing noted. He acknowledges continued voices. S1 can go home but there is no significant pressure by him for discharge. However the counselor has learned that he does have a real girlfriend living in his apartment building. For now will increase oral Respinol to 3 mg twice a day Review of Systems Except as stated in HPI: all other systems reviewed are Neg Objective Alert: Yes [place]: Person, Place Mood: Anxious Affect: Other (intense gaze) Memory Intact: Comment (fair) Hallucinations: Auditory (appears to be responding to internal stimuli) Delusions: Yes Delusion Type: Paranoid Suicidal: Ideation (denies) Homicidal: Ideation (denies) Insight/Judgment Poor Vitals/IOs Vital Signs Date Time Temp Pulse Resp B/P Pulse Ox O2 Delivery O2 Flow Rate FiO2 12/17/16 06:09 98.9 65 18 100/57 97 Assessment & Plan Problem List: (1) Schizophrenia, paranoid type ICD Code: F20.0 Assessment & Plan Estimated LOS: days patient continue psychotic symptoms delusional though somewhat softer. Please see medication adjustment above Justification for Cont. Inpt. At this time patient will decompensate the place to the lower level of care Discharge Planning To be determined Request HC Surrog/Guard Advoc?: No Agustin Quigley MD Dec 17, 2016 11:34
[2016-12-17] MEDS: ACETAMINOPHEN 325 MG TAB PO PRN (16:36)
[2016-12-17] MEDS: risperiDONE ODT 3 MG TAB PO SCH (18:00)
[2016-12-17 18:11] VITALS: BP 100/57; PULSE 86; RESP 18; TEMP 97.4; O2SAT 97
[2016-12-17] MEDS: REMOVE OLD NICOTINE PATCH T-DERMAL SCH (21:00)
[2016-12-17] MEDS: ZIPRASIDONE HCL 60 MG CAP PO SCH (21:07)
[2016-12-18 06:16] VITALS: BP 81/50; PULSE 74; RESP 18; TEMP 97.7; O2SAT 97
[2016-12-18] MEDS: risperiDONE ODT 3 MG TAB PO SCH ×2 (08:00→18:19)
[2016-12-18] MEDS: NICOTINE 21 MG/24 HR PATCH T-DERMAL SCH (09:00)
--- NOTE | 2016-12-18 14:40 | HHI.PYPN ---
Subjective Remarks Patient seen in [place] nurse Anamika. Chart review, patient compliant medications. Patient states voices continue though it appears there somewhat softer not as intrusive. Patient seems somewhat more focused with us. Now acknowledges that the "shot "may have helped to diminish the voices. For now continue treatment Review of Systems Except as stated in HPI: all other systems reviewed are Neg Objective Alert: Yes [place]: Person, Place Mood: Anxious Affect: Other (intense gaze) Memory Intact: Comment (fair) Hallucinations: Auditory (appears to be responding to internal stimuli) Delusions: Yes Delusion Type: Paranoid Suicidal: Ideation (denies) Homicidal: Ideation (denies) Insight/Judgment Poor Vitals/IOs Vital Signs Date Time Temp Pulse Resp B/P Pulse Ox O2 Delivery O2 Flow Rate FiO2 12/18/16 06:16 97.7 74 18 81/50 97 Assessment & Plan Problem List: (1) Schizophrenia, paranoid type ICD Code: F20.0 Assessment & Plan Estimated LOS: days patient psychosis continues to slowly softening, the voices have diminished. Patient showing some insight into the relationship with the medication and his improvement. For now continue treatment Justification for Cont. Inpt. At this time patient will decompensate placed on the lower level of care Discharge Planning To be determined Request HC Surrog/Guard Advoc?: No Agustin Quigley MD Dec 18, 2016 14:40
[2016-12-18] MEDS: ACETAMINOPHEN 325 MG TAB PO PRN (16:50)
[2016-12-18 18:16] VITALS: BP 127/67; PULSE 106; RESP 18; TEMP 98.2; O2SAT 97
[2016-12-18] MEDS: ZIPRASIDONE HCL 60 MG CAP PO SCH (20:34)
[2016-12-18] MEDS: REMOVE OLD NICOTINE PATCH T-DERMAL SCH (21:00)
[2016-12-19 06:17] VITALS: BP 102/60; PULSE 96; RESP 18; TEMP 98.2; O2SAT 97
[2016-12-19] MEDS: risperiDONE ODT 3 MG TAB PO SCH ×2 (08:00→17:56)
[2016-12-19] MEDS: NICOTINE 21 MG/24 HR PATCH T-DERMAL SCH (09:35)
[2016-12-19] MEDS: ACETAMINOPHEN 325 MG TAB PO PRN (15:00)
--- NOTE | 2016-12-19 16:06 | HHI.PYPN ---
Subjective Remarks Patient seen today in [facility] with nurse Nick and medical student Dre, chart reviewed, patient compliant medications. Patient's hygiene continues to improve his now clean-shaven. And asking to get his fingernails trimmed. He continues to agree with the need for compliance with his oral medication and is injections upon discharge. Overall I feel patient is doing better will consider discharge tomorrow if he remains consistent Review of Systems Except as stated in HPI: all other systems reviewed are Neg Objective Alert: Yes [place]: Person, Place Mood: Anxious Affect: Other (intense gaze) Memory Intact: Comment (fair) Hallucinations: Auditory (appears to be responding to internal stimuli) Delusions: Yes Delusion Type: Paranoid Suicidal: Ideation (denies) Homicidal: Ideation (denies) Insight/Judgment Poor Vitals/IOs Vital Signs Date Time Temp Pulse Resp B/P Pulse Ox O2 Delivery O2 Flow Rate FiO2 12/19/16 06:17 98.2 96 18 102/60 97 Assessment & Plan Problem List: (1) Schizophrenia, paranoid type ICD Code: F20.0 Assessment & Plan Estimated LOS: days patient psychosis continues to resolve. He showing improvement in hygiene focus and them cooperation. For now continue treatment no change consider discharge tomorrow Justification for Cont. Inpt. Consider discharge tomorrow Discharge Planning To be determined Request HC Surrog/Guard Advoc?: No Agustin Quigley MD Dec 19, 2016 16:06
[2016-12-19 17:03] VITALS: BP 116/67; PULSE 70; RESP 17; TEMP 97.7; O2SAT 99
[2016-12-19] MEDS: ZIPRASIDONE HCL 60 MG CAP PO SCH (20:39)
[2016-12-19] MEDS: REMOVE OLD NICOTINE PATCH T-DERMAL SCH (20:39)
[2016-12-20 06:07] VITALS: BP 112/69; PULSE 96; RESP 18; TEMP 97.9; O2SAT 97
[2016-12-20] MEDS: risperiDONE ODT 3 MG TAB PO SCH (08:00)
[2016-12-20] MEDS: NICOTINE 21 MG/24 HR PATCH T-DERMAL SCH (08:13)
[2016-12-20] MEDS ORDERED: GEOD80CA PO (14:33)
[2016-12-20] MEDS ORDERED: RISPM3 PO (14:33)
[2016-12-20] MEDS ORDERED: PALI234P IM (14:33)
--- NOTE | 2016-12-20 14:47 | HHI.DS ---
Psychiatry Discharge Summary Inpatient Psychiatric care?: Yes Advance Directive: No Reason Not Provided: declined Mental Health AdvanceDirective: No Health Care Proxy: No Admission Admission Date Nov 30, 2016 at 20:49 Admission Diagnosis: (1) Schizophrenia, paranoid type ICD Code: F20.[address] Quigley's note:Patient is a 36-year-old white male note was multiple prior contacts has been seen there 3 times prior this year comes here under [place] act by the [place] [employer] dated 11/30/16 at 1:25 PM that document reviewed states pacing the that subject to schizophrenic and off his meds for 2 weeks he is hearing voices and was located at the parking lot yelling at pedestrians patient seen screened in ED urine toxicology negative bladder: Negative. Patient seen in his room on 0 with nurse Deric. Patient laying in bed patient markedly disheveled scruffy fairly darkly Tanned and Somewhat Malodorous. But Appears His Recognize Me from Prior Contact. States He Lives near a Local Restaurant, Patient Is a Girlfriend, Some Place to Live. Though He Feels He Has To Defend Her Because of People in the Neighborhood. He States He Was Yelling As Mentioned to Address the People in the Neighborhood. He Does Acknowledge Auditory Hallucinations. Patient does admit to noncompliance of medication. Though he states he is a client through [facility] act. For now we will restart medications that have been noted on the med reconciliation. I do feel he meets criteria for involuntary hospitalization of the [place]inson act thus I'll do first opinion requests second opinion that feel his capacity to sign for his medication hopeless be fairly short stay and follow-up outpatient [facility] Pt. remains psychotic with paranoid delusions. Feels there are people in the neighborhood who wish to harm his girlfriend. Cont to report aud halllucinations. Tobacco Use In Past 30 Days: 5 or More Cigarettes/Day Alcohol Use: Never Hospital Course Patient initial delusions psychosis with auditory hallucinations persisted showing little insight into his disease with denial of mental illness and need for medications in the community. However he was compliant with medications on the inpatient unit. Once the addition of Respinol was made and subsequent to that the addition of the vagus sustain a patient psychosis slowly resolve. Until with in the past 2-3 days patient is acknowledging his feeling better with the medication acknowledging the decrease in the voices in his paranoia. He now acknowledges his need for compliance with medication including the injections in the community. At this time patient will order meets criteria for inpatient psychiatric hospitalization. He'll be discharged today to himself. Will refer to home health care psychiatric nurse medication management and possibly injections. We will also referral Mr. Remy lund for follow-up. Will be given 1 month supply medications patient's initial very poor hygiene and malodorous condition slowly resolved, loud us give him a haircut, is now clean-shaven in the malodorous condition is resolved Results Blood Pressure 112 / 69 Vital Signs Date Time Temp Pulse Resp B/P Pulse Ox O2 Delivery O2 Flow Rate FiO2 12/20/16 06:07 97.9 96 18 112/69 97 Urine toxicology negative blood alcohol level negative Summary of Procedures None done Pending results at discharge: No Medications # of Antipsychotic meds at D/C: 2 Appropriate >1 Antipsych meds?: 2 (would recommend clinician in the community consider weaning off the oral Respinol as the injectable takes more affect) Approp Antipsych med options 1 - Minimum of three failed multiple trials of monotherapy. 2 - Documented plan to taper to monotherapy due to previous use of multiple meds OR cross-taper in progress at D/C. 3 - Documentation of augmentation of Clozapine. 4 - Justification other than those listed in allowable values 1-3, document here : Discharge Discharge Date: Dec 20, 2016 Discharge Diagnosis: (1) Schizophrenia, paranoid type Diagnosis: Principal ICD Code: F20.0 Mental Status Exam at Disch Alert oriented white male calm cooperative, he is normal active, his mood is euthymic with slight decreased range intensity of his affect. Speech rate and rhythm within normal limits is only mildly tangential. There are no auditory or visual hallucinations no delusions noted. Insight and judgment is poor to fair cognition grossly intact Pt Condition on Discharge: Stable Discharge Disposition: Discharge Home Discharge Instructions Diet Instructions: As Tolerated, No Restrictions Activities you can perform: Regular-No Restrictions Scheduled Appointment: [facility] Appointment Date: Dec 23, 2016 Appointment Time: 7:30am Discharge Time > 30 minutes Discharge/Advance Care Plan Health Problems: (1) Schizophrenia, paranoid type Goals to promote your health * To prevent worsening of your condition and complications * To maintain your health at the optimal level Directions to meet your goals Take your medications as prescribed Follow your dietary instruction Follow activity as directed Keep your appointments as scheduled Take your immunizations and boosters as scheduled If your symptoms worsen call your PCP, if no PCP go to Urgent Care Center or Emergency Room For 13/01 questions related to your inpatient stay or results of tests pending at discharge, please contact Dr. Agustin Quigley at Smoking is Dangerous to Your Health. Avoid second hand smoking Agustin Quigley MD Dec 20, 2016 14:47
== END 2016-12-20 15:00 | disposition home or self-care (01) | DRG 885 ==
LOC: NEPD 13:35 → NEDA 20:49 → H270 21:01
PROVIDERS: ADMIT Psychiatry & Neurology Psychiatry; ATTEND Psychiatry & Neurology Psychiatry
DX: F20.0 Paranoid schizophrenia (principal); Z91.14 Patient's other noncompliance with medication regimen; F17.210 Nicotine dependence, cigarettes, uncomplicated
CPT/HCPCS: 80053; 80307; 81001; 85025

== ENCOUNTER 2017-08-01 05:50 | Emergency (ER) | payer MEDICARE, OTHER ==
[~2017-08-01] VITALS: Ht 182.9 cm; Wt 84.0 kg
[~2017-08-01 05:50] MED LIST changes: -ABIL5TAB6 PO; +GEOD80CA PO; +PALI234P IM; +RISPM3 PO
[2017-08-01 05:53] VITALS: BP 138/78; PULSE 115; RESP 16; TEMP 98.8; O2SAT 98
--- NOTE | 2017-08-01 06:30 | PD ---
HPI Chief Complaint: Medical Clearance Time Seen by Provider: 06:01 Travel History International Travel<30 days: No Contact w/Intl Traveler<30days: No Traveled to known affect area: No History of Present Illness HPI Patient is a 37-year-old male presenting to the emergency department stating he is Stinson acted. Patient reported to triage that he needed somewhere to stay because his grandmother's house is stuffy. Patient states that his father dropped him off here to get help. He then stated that he was staying in a hotel room and [place] and walked here. Patient has a history of schizophrenia. He currently denies any suicidal, homicidal ideations. He denies any hallucinations. He denies any alcohol or drug use. She was asked if he had any physical complaints and he denied them. He reports just eating somewhere to sleep. Patient states he has been up all night. PFSH Past Medical History Anxiety: Yes Depression: Yes Diabetes: No Diminished Hearing: No Psychiatric: Yes (he has been here in past ) Immunizations Current: Yes Past Surgical History Surgical History: No Previous Surgery Other Surgery: No Social History Alcohol Use: No Tobacco Use: Yes (1 pk a day) Substance Use: No Allergies-Medications (Allergen,Severity, Reaction): Coded Allergies: *MDRO Multi-Drug Resistant Organism (Verified Allergy, Unknown, 08/01/17) MRSA Reported Meds & Prescriptions Reported Meds & Active Scripts Active Invega Sustenna Inj (Paliperidone Palmitate) 234 Mg/1.5 Ml Inj 234 Mg IM Q28D Next injection due 01/10 Geodon (Ziprasidone) 80 Mg Cap 80 Mg PO 3 PO HS Risperdal M-Tab (Risperidone) 3 Mg Tab 3 Mg PO BID@ Reported Lexapro (Escitalopram Oxalate) 5 Mg Tab 5 Mg PO DAILY Review of Systems Except as stated in HPI: all other systems reviewed are Neg Psychiatric: Positive: Disorder of Thought, Mood Disorder Physical Exam Narrative GENERAL: Well-developed, well-nourished, disheveled male. Presenting in no acute distress. SKIN: Warm and dry. HEAD: Atraumatic. Normocephalic. EYES: Pupils equal and round. No scleral icterus. No injection or drainage. ENT: No nasal bleeding or discharge. Mucous membranes pink and moist. NECK: Trachea midline. No JVD. CARDIOVASCULAR: Tachycardic. RESPIRATORY: No accessory muscle use. Clear to auscultation. Breath sounds equal bilaterally. GASTROINTESTINAL: Abdomen soft, non-tender, nondistended. Hepatic and splenic margins not palpable. MUSCULOSKELETAL: Extremities without clubbing, cyanosis, or edema. No obvious deformities. NEUROLOGICAL: Awake and alert. No obvious cranial nerve deficits. Motor grossly within normal limits. Five out of 5 muscle strength in the arms and legs. Normal speech. PSYCHIATRIC: Flat mood and affect; insight and judgment normal. Data Data Last Documented VS Vital Signs Date Time Temp Pulse Resp B/P (MAP) Pulse Ox O2 Delivery O2 Flow Rate FiO2 08/01/17 06:45 96 18 108/58 (75) 97 Room Air 08/01/17 05:53 98.8 Orders Orders Ed Discharge Order (08/01/17 07:02) [facility] Medical Decision Making Medical Screen Exam Complete: Yes Emergency Medical Condition: Yes Medical Record Reviewed: Yes Interpretation(s) Vital Signs Date Time Temp Pulse Resp B/P (MAP) Pulse Ox O2 Delivery O2 Flow Rate FiO2 08/01/17 05:53 98.8 115 16 138/78 (98) 98 Room Air Differential Diagnosis Mood disorder versus substance abuse or suicidal ideations versus schizophrenia versus normal examination versus malingering Narrative Course Patient is a 37-year-old male presented to the emergency department to Milad lund himself although he has no suicidal, homicidal ideations. He denies any hallucinations and he appears lucid. He is tachycardic on arrival, he has reportedly not been sleeping all night. Will allow patient to rest and then will recheck vital signs. Patient's vital signs are reassessed, his heart rate has trended down and is currently 96. Patient's blood pressure 108/58. Patient is resting comfortably. There are no psychological complaints, patient has no physical complaints. He denies suicidality, homicidal ideations or any hallucinations at this time. Patient is encouraged to follow-up with Red Alberto if needed. Additionally patient can always return to emergency department for any new or worsening symptoms. A medical screening exam was performed: At the time of evaluation the presenting medical condition was determined not to be of an emergent nature. The patient was given the option of receiving additional care, but declined. Patient was given options for additional community resources from which to obtain care. The Patient Has Been advised to seek medical attention for their presenting complaint. The patient has been advised to return to the ER at any time if an emergent condition develops. Patient elected to stay in the emergency department, this is not changed patient 's disposition, there is no emergency medical condition. Patient stable for discharge. Diagnosis Primary Impression: Encounter for medical screening examination Referrals: Primary Care Physician Patient Instructions: General Instructions Additional Instructions: Follow-up with your primary doctor Follow-up with Dr. Alberto Return to emergency department for any new worsening symptoms Med/Other Pt SpecificInfo: No Change to Meds Disposition: 01 DISCHARGE HOME Condition: Stable Vilma Warner Aug 01, 2017 06:30
[2017-08-01 06:45] VITALS: BP 108/58; PULSE 96; RESP 18; O2SAT 97
== END 2017-08-01 07:55 | disposition home or self-care (01) ==
LOC: NEPD 05:50
DX: F20.9 Schizophrenia, unspecified (principal); F41.9 Anxiety disorder, unspecified; F17.200 Nicotine dependence, unspecified, uncomplicated; Z79.899 Other long term (current) drug therapy
CPT/HCPCS: 99283

== ENCOUNTER 2017-08-13 03:02 | Inpatient (IN) | payer MEDICARE, OTHER ==
[~2017-08-13] VITALS: Ht 182.9 cm; Wt 77.1 kg
[2017-08-13 03:41] VITALS: BP 128/78; PULSE 94; RESP 20; TEMP 98.5; O2SAT 97
[2017-08-13] MEDS ORDERED: ZOLO25TA PO (03:48)
[2017-08-13] MEDS ORDERED: ARIP2 PO (03:48)
--- NOTE | 2017-08-13 04:01 | PD ---
HPI Chief Complaint: Psychiatric Symptoms Time Seen by Provider: 03:07 Travel History International Travel<30 days: No Contact w/Intl Traveler<30days: No Traveled to known affect area: No History of Present Illness HPI 37-year-old white male presents to emergency department under [place] act by PD. The patient allegedly had gone over to his parents house and had threatened them. The patient allegedly had made homicidal and suicidal statements. Patient here denies this. Patient is uncooperative. He is very sarcastic and evasive with his answers. On direct questioning the patient denies any suicidal or homicidal ideation. He denies any medical complaints. PFSH Past Medical History Bipolar Disorder: Yes Anxiety: Yes Depression: Yes Diabetes: No Diminished Hearing: No Psychiatric: Yes (he has been here in past ) Immunizations Current: Yes Schizophrenia: Yes Tetanus Vaccination: Unknown Influenza Vaccination: No Past Surgical History Other Surgery: No Social History Alcohol Use: No Tobacco Use: Yes (1 pk a day) Substance Use: No Allergies-Medications (Allergen,Severity, Reaction): Coded Allergies: *MDRO Multi-Drug Resistant Organism (Verified Allergy, Unknown, 08/01/17) MRSA Reported Meds & Prescriptions Reported Meds & Active Scripts Active Invega Sustenna Inj (Paliperidone Palmitate) 234 Mg/1.5 Ml Inj 234 Mg IM Q28D Next injection due 01/10 Geodon (Ziprasidone) 80 Mg Cap 80 Mg PO 3 PO HS Risperdal M-Tab (Risperidone) 3 Mg Tab 3 Mg PO BID@18 Reported Abilify (Aripiprazole) 2 Mg Tab Mg PO DAILY Zoloft (Sertraline HCl) 25 Mg Tab Mg PO DAILY Lexapro (Escitalopram Oxalate) 5 Mg Tab 5 Mg PO DAILY Review of Systems General / Constitutional: No: Fever Eyes: No: Visual changes HENT: No: Headaches Cardiovascular: No: Chest Pain or Discomfort Respiratory: No: Shortness of Breath Gastrointestinal: No: Abdominal Pain Genitourinary: No: Dysuria Musculoskeletal: No: Pain Skin: No Rash Neurologic: No: Weakness Psychiatric: Positive: Suicidal Ideations, Homicidal Ideation, No: Depression Endocrine: No: Polydipsia Hematologic/Lymphatic: No: Easy Bruising Physical Exam Narrative GENERAL: Well-nourished, well-developed patient. SKIN: Warm and dry. HEAD: Normocephalic and atraumatic. EYES: No scleral icterus. No injection or drainage. ENT: No nasal drainage noted. Mucous membranes pink. Airway patent. NECK: Supple, trachea midline. Moves head freely without obvious discomfort. CARDIOVASCULAR: Regular rate and rhythm without murmurs, gallops, or rubs. RESPIRATORY: Breath sounds equal bilaterally. No accessory muscle use. GASTROINTESTINAL: Abdomen soft, non-tender, nondistended. EXTREMITIES: No cyanosis or edema. BACK: Nontender without obvious deformity. No CVA tenderness. NEURO: Patient is alert and oriented. no sensorimotor deficits. Nonfocal. Normal speech. PSYCH: Patient appears psychotic. He is very evasive and does not answer questions properly. There is poor insight and judgment. Data Data Last Documented VS Vital Signs Date Time Temp Pulse Resp B/P (MAP) Pulse Ox O2 Delivery O2 Flow Rate FiO2 08/13/17 03:41 98.5 94 20 128/78 (95) 97 Orders Orders Complete Blood Count With Diff (08/13/17 03:55) Comprehensive Metabolic Panel (08/13/17 03:55) Thyroid Stimulating Hormone (08/13/17 03:55) Psych Screen (08/13/17 03:55) Drug Screen, Random Urine (08/13/17 03:55) Alcohol (Ethanol) (08/13/17 03:55) MDM Medical Decision Making Medical Screen Exam Complete: Yes Emergency Medical Condition: Yes Medical Record Reviewed: Yes Differential Diagnosis MDM: High Differential diagnoses: Schizophrenia, schizoaffective disorder, bipolar, anxiety, depression, adjustment reaction, mood disorder NOS, ODD, depressive disorder NOS, dementia, dementia with agitation, psychosis NOS, substance induced mood disorder, DMDD, Asperger syndrome, infection,electrolyte abnormality, malingering. Narrative Course Mental health screening discussed with the patient. Psychiatric screen ordered. The patient is been medically cleared. Diagnosis Primary Impression: Medical clearance for psychiatric admission Condition: Stable Daniel Singh Aug 13, 2017 04:01
[2017-08-13 04:11] LABS: AUTOMATED NEUTROPHIL # 6.2 TH/MM3 (1.8-7.7); BASOPHIL # 0.1 TH/MM3 (0-0.2); BASOPHIL % 0.6 % (0.0-2.0); EOSINOPHIL # 0.1 TH/MM3 (0-0.4); EOSINOPHIL % 1.5 % (0.0-4.0); HEMATOCRIT 46.3 % (39.0-51.0); HEMOGLOBIN 16.2 GM/DL (13.0-17.0); LYMPH % 23.8 % (9.0-44.0); LYMPHOCYTE # 2.3 TH/MM3 (1.0-4.8); MEAN CELL VOLUME 88.5 FL (80.0-100.0); MEAN PLATELET VOLUME 6.9 FL (7.0-11.0); MONO % 11.3 % (0.0-8.0); MONOCYTE # 1.1 TH/MM3 (0-0.9); NEUT % 62.8 % (16.0-70.0); PLATELET COUNT 319 TH/MM3 (150-450); RED BLOOD COUNT 5.23 MIL/MM3 (4.50-5.90); RED CELL DISTRIBUTION WIDTH 13.2 % (11.6-17.2); WHITE BLOOD COUNT 9.9 TH/MM3 (4.0-11.0)
[2017-08-13 04:47] LABS: ALBUMIN 3.9 GM/DL (3.4-5.0); ALT (GPT) 21 U/L (12-78); AST (GOT) 18 U/L (15-37); BLOOD UREA NITROGEN 13 MG/DL (7-18); CALCIUM 8.9 MG/DL (8.5-10.1); CHLORIDE 106 MEQ/L (98-107); CREATININE 0.96 MG/DL (0.60-1.30); GLOMERULAR FILTRATION RATE 89 ML/MIN (>89); GLUCOSE,RANDOM 90 MG/DL (74-106); SODIUM (NA) 141 MEQ/L (136-145)
[2017-08-13 04:57] LABS: ALKALINE PHOSPHATASE 86 U/L (45-117); TOTAL BILIRUBIN ADULT 0.5 MG/DL (0.2-1.0); TOTAL PROTEIN 7.7 GM/DL (6.4-8.2)
[2017-08-13 09:28] VITALS: BP 132/77; PULSE 91; RESP 18; TEMP 98.3; O2SAT 98
[2017-08-13 15:24] VITALS: BP 122/91; PULSE 91; RESP 18; TEMP 98.1; O2SAT 99
[2017-08-13] MEDS: REMOVE OLD NICOTINE PATCH T-DERMAL SCH (21:00)
[2017-08-13] MEDS ORDERED: ALUMINUM/MAGNESIUM/SIMETH 30 ML CUP PO PRN (21:00)
[2017-08-13] MEDS ORDERED: LORazepam 2 MG/ML VIAL IM PRN (21:00)
[2017-08-13] MEDS ORDERED: MAGNESIUM HYDROXIDE SUSP 30 ML CUP PO PRN (21:00)
[2017-08-14 06:13] VITALS: BP 140/56; PULSE 74; RESP 18; TEMP 97.7; O2SAT 98
--- NOTE | 2017-08-14 07:07 | HHI.HP ---
Provisional Diagnosis Admission Date Aug 13, 2017 at 06:40 [place] I. 1. Schizophrenia, paranoid type, acute exacerbation [place] II. Deferred Certification of Person's Competence To Provide Express and Informed Consent I have personally examined Marv Goodson , a person being served at [facility] on, Aug 14, 2017 07:06. Express and informed consent means consent voluntarily given in writing, by a competent person, after sufficient explanation and disclosure of the subject matter involved to enable the person to make a knowing and willful decision without any element of force, fraud, deceit, duress, or other form of constraint or coercion. This person is 18 years of age or older, is not now known to be incompetent to consent to treatment with a guardian advocate, and does not have a health care surrogate or proxy currently making medical treatment decisions. I have found this person to be one of the following: [] Competent to provide express and informed consent, as defined above, for voluntary admission to this facility and is competent to provide express and informed consent for treatment. He/she has the consistent capacity to make well reasoned, willful, and knowing decisions concerning his or her medical or mental health treatment. The person fully and consistently understands the purpose of the admission for examination/placement and is fully capable of personally exercising all rights assured [place] [x] Incompetent to provide express and informed consent to voluntary admission, and this is incompetent to provide express and informed consent to treatment. The person must be transferred to involuntary status and a petition for a guardian advocate filed with the Circuit Court. [] Refusing to provide express and informed consent to voluntary admission but is competent to provide express and informed consent for treatment. The person must be discharged or transferred to involuntary status. Form shall be completed within 24 hours of a person's arrival at the receiving facility and filed in the clinical record of each person: 1. Admitted on a voluntary basis 2. Permitted to provide express and informed consent to his/her own treatment 3. Allowed to transfer from involuntary to voluntary status 4. Prior to permitting a person to consent to his or her own treatment after having been previously found incompetent to consent to treatment. History of Present Illness Capacity: Lacks Capacity Psych Chief Complaint: Psychosis HPI Mr. Cruz is a 37-year-old male with a history of schizophrenia who presents under a Stinson act by law enforcement alleging that the patient went to his father's house and began yelling about killing them and himself. Patient allegedly told the officer that he has not been taking his prescribed medications. Reviewing the electronic medical record, I note that the patient was admitted most recently in November [address] Quigley, and he was stabilized on Risperdal and Geodon at that time. Patient seen and examined. Chart reviewed. Case discussed with nursing staff. On my examination this morning the patient presents as disheveled and sunburned. His fingernails are visibly dirty. He is irritable and is unable to tolerate extended interview. He denies audiovisual hallucinations but appears frankly internally stimulated. He denies any suicidal or homicidal ideation but seems unreliable to contract for safety. He is noted to be paranoid. He also seems to have a oriental orthodox preoccupation. No other delusional material elicited. He does make odd statements at times, for example noting that I'm wearing eyeglasses he says "do you have your glasses on ? Maybe that's why I can't talk to you." No mood symptoms elicited besides the irritability. The remainder of the psychiatric ROS is negative. The patient has no physical complaints. Past psychiatric history: Patient is likely an unreliable historian. When I ask about previous diagnoses he initially says "like I said, I lived under a big giant cross in [place]." He later says that he has "schizo and affective" disorder. He denies a history of suicide attempts. Family history: The patient denies a family history of mental illness. Chemical dependency history: The patient denies any abuse of drugs or alcohol. Social history: The patient reports that he has an associates degree. He attended [employer]. He is on disability. He is single with no children. He denies any access to guns or firearms. When I ask about oriental orthodox or spiritual beliefs the patient says only "other." Given the patient's degree of psychotic decompensation, I have obtained collateral from his father Tushar Costello at [phone]. He is willing to serve as health care surrogate. He notes that the patient has a history of schizophrenia and has been "walking the streets, talking to himself." He also notes that the patient has been "super angry." He notes that the patient is frequently nonadherent with psychotropic medications. He has been on a long- acting injectable medication in the past, and this medication has reportedly been most efficacious for him. Father thinks he received this medication at [facility]. Treatment plan discussed with father, and father is in agreement with the plan as outlined below. I did also endeavor to obtain collateral information from his mother Yue at the number listed in the EMR. I tried to call that number but it kept ringing without an opportunity to leave a voicemail. Placed call over to [facility]. Spoke with Dorene there. She has no record of the patient having been on a long-acting injectable. Most recent medications were oral Abilify and sertraline. He has been on Lexapro, Latuda and Geodon in the past. Review of Systems ROS Limitations: Psychotic, Poor Historian Except as stated in HPI: all other systems reviewed are Neg Past Family Social History Coded Allergies: *MDRO Multi-Drug Resistant Organism (Verified Allergy, Unknown, 08/01/17) MRSA Past Medical History See electronic medical record. No reported past medical history. Active Scripts Paliperidone Palmitate Inj (Invega Sustenna Inj) 234 Mg/1.5 Ml Inj, 234 MG IM Q28D for Schizophrenia, #1 VIAL 0 Refills Next injection due 01/10 Prov:Agustin Quigley MD 12/20/16 Ziprasidone (Geodon) 80 Mg Cap, 80 MG PO 3 po hs for health, #90 CAP 0 Refills Prov:Agustin Quigley MD 12/20/16 Risperidone Odt (Risperdal M-Tab) 3 Mg Tab, 3 MG PO BID@ for health, #60 TAB 0 Refills Prov:Agustin Quigley MD 12/20/16 Reported Medications Aripiprazole (Abilify) 2 Mg Tab, MG PO DAILY, #30 TAB 0 Refills 08/13/17 Sertraline (Zoloft) 25 Mg Tab, MG PO DAILY, #30 TAB 0 Refills 08/13/17 Escitalopram (Lexapro) 5 Mg Tab, 5 MG PO DAILY, #30 TAB 0 Refills 10/30/16 Current Medications Medications (Trade) Dose Ordered Sig/Pati Route Start Time Stop Time Status Last Admin (Ativan) 1 mg Q6H PRN PO 08/13/17 21:00 (Ativan Inj) 1 mg Q6H PRN IM 08/13/17 21:00 (Tylenol) 650 mg Q4H PRN PO 08/13/17 21:00 (Milk Of Magnesia Liq) 30 ml DAILY PRN PO 08/13/17 21:00 (Mag-Al Plus Susp Liq) 30 ml Q6H PRN PO 08/13/17 21:00 (Habitrol 21 Mg Patch.24 Hr) 1 patch DAILY T-DERMAL 08/14/17 09:00 Miscellaneous Information 1 HS T-DERMAL 08/13/17 21:00 Patient's Strengths (min. 2) Supportive family. Verbally fluent. Physical Exam Physical exam completed by ED provider. On my examination today, the patient appears to be in no acute physical distress. He is quite disheveled and sunburnt as I said. No motor abnormalities noted. Labs and vitals reviewed: Vital Signs Vital Signs Date Time Temp Pulse Resp B/P (MAP) Pulse Ox O2 Delivery O2 Flow Rate FiO2 08/14/17 06:13 97.7 74 18 140/56 (84) 98 Lab Results Item Value Date Time White Blood Count 9.9 TH/MM3 08/13/17 0400 Hemoglobin 16.2 GM/DL 08/13/17 0400 Platelet Count 319 TH/MM3 08/13/17 0400 Sodium Level 141 MEQ/L 08/13/17 0400 Potassium Level 4.2 MEQ/L 08/13/17 0400 Carbon Dioxide Level 30.0 MEQ/L 08/13/17 0400 Chloride Level 106 MEQ/L 08/13/17 0400 Blood Urea Nitrogen 13 MG/DL 08/13/17 0400 Creatinine 0.96 MG/DL 08/13/17 0400 Estimat Glomerular Filtration Rate 89 ML/MIN 08/13/17 0400 Random Glucose 90 MG/DL 08/13/17 0400 Aspartate Amino Transf (AST/SGOT) 18 U/L 08/13/17 0400 Alanine Aminotransferase (ALT/SGPT) 21 U/L 08/13/17 0400 Alkaline Phosphatase 86 U/L 08/13/17 0400 Thyroid Stimulating Hormone 3rd Gen 2.400 uIU/ML 08/13/17 0400 Ethyl Alcohol Level LESS THAN 3 MG/DL 08/13/17 0400 Labs reviewed. No clinically significant laboratory abnormalities. Urine toxicology is not available for my review. I have canceled the order for the basic U tox and ordered the extended urine toxicology screening. Mental Status Examination Appearance: Dirty, Disheveled Consciousness: Alert, Vigilant Orientation: Person, Place (at least) Motor Activity: Normal gait Speech: Other (somewhat terse and angry) Language: Adequate Fund of Knowledge: Adequate Attention and Concentration: Easily Distracted Memory: Impaired (psychosis likely interferes) Mood: Irritable, Other (dysphoric) Affect: Other (restricted and consistent with mood) Thought Process & Associations: Tangential Thought Content: Bizarre thinking, Delusional Hallucination Type: Other (denies AVH but appears internally preoccupied) Delusion Type: Paranoid, Other (oriental orthodox preoccupation) Suicidal Ideation: No (unreliable to contract for safety) Suicidal Plan: No Suicidal Intention: No Homicidal Ideation: No (unreliable to contract for safety) Homicidal Plan: No Homicidal Intention: No Insight: Poor Judgment: Poor Assessment & Plan Problem List: (1) Schizophrenia, paranoid type ICD Codes: F20.0 - Paranoid schizophrenia Status: Acute Assessment & Plan 37-year-old male with psychiatric history as detailed above who is presently admitted to the inpatient psychiatric unit under [facility]. On my examination today, the patient presents as floridly psychotic. He reported medication nonadherence to the officer who brought him in. Collateral from father also suggests medication nonadherence is an issue, and the patient reportedly has been struggling with irritability/anger lately. Given the issues with medication nonadherence, I think that initiation of a long-acting injectable medication is indicated at this point. There is no record of the patient having been on a long-acting injectable at [facility], but I do note that the patient was started on oral Risperdal and then Invega Sustenna during his hospitalization under Dr. Quigley (Invega Sustenna medication is charted as refused in the MAR, but there is a nursing note indicating that it was given). Patient apparently tolerated Risperdal/Invega Sustenna well. Therefore, I will plan to resume Invega Sustenna now. Patient requires psychiatric hospitalization at this time for safety, observation and stabilization. Admit inpatient. Involuntary status. I have completed first opinion. Consult for second opinion. Request healthcare surrogate and guardian advocate. I will check an extended urine toxicology screen. Check EKG for QTc. So long as the QTc interval was not prolonged I will plan to start Invega Sustenna later today at the 234 mg dose with plans for a booster dose in 4-7 days. [Update: QTc wnl. Initiate Sustenna today.] Oral supplementation is not required with Invega Sustenna, although we might consider augmenting with a second antipsychotic if symptoms are not completely resolved with Invega Sustenna. I will also provide patient with Haldol as needed for severe agitation, Benadryl as needed for EPS or sleep and Ativan as needed for anxiety. Vitals every shift. Counselor to see. Disposition planning. Estimated length of stay: 5-7 days. Discharge Planning Pending psychiatric stabilization Request HC Surrog/Guard Advoc?: Yes Dominick Booth MD Aug 14, 2017 07:07
[2017-08-14] MEDS ORDERED: diphenhydrAMINE HCL 50 MG/ML VIAL IM PRN (08:00)
[2017-08-14] MEDS ORDERED: HALOPERIDOL LACTATE 5 MG/ML AMP IM PRN (08:00)
[2017-08-14] MEDS ORDERED: NICOTINE 21 MG/24 HR PATCH T-DERMAL SCH (09:00)
[2017-08-14] MEDS: NICOTINE 21 MG/24 HR PATCH T-DERMAL PRN (09:21)
[2017-08-14] MEDS ORDERED: PALIPERIDONE PALMITATE 234 MG/1.5 ML SYRINGE IM ONE (14:00)
[2017-08-14 16:53] VITALS: BP 132/79; PULSE 92; RESP 17; TEMP 99; O2SAT 98
--- NOTE | 2017-08-14 19:52 | EKG ---
Date Performed: 08/14/2017 Time Performed: 09:06:04 PTAGE: 37 years EKG: Sinus rhythm NORMAL ECG PREVIOUS TRACING : 11/26/2012 10.42 Since the prior tracing, there has been no significant bond DOCTOR: Ana Larios Interpretating Date/Time 08/14/2017 19:50:23
[2017-08-14] MEDS: REMOVE OLD NICOTINE PATCH T-DERMAL SCH (21:00)
[2017-08-15 06:13] VITALS: BP 134/66; PULSE 74; RESP 18; TEMP 96.9; O2SAT 97
[2017-08-15] MEDS: NICOTINE 21 MG/24 HR PATCH T-DERMAL PRN (08:55)
--- NOTE | 2017-08-15 09:46 | HHI.PYPN ---
Subjective Chief Complaint: Psychosis Remarks Patient seen and examined with nurse. Chart reviewed. Case discussed with nursing staff. Patient noted to hold an extended conversation with himself overnight. Case discussed in treatment team. On my examination today, the patient remains disorganized. He remains internally stimulated. He wishes to be referred to as "Dr. Leslie." He again insists that I remove my eyeglasses to speak with him, and I do suspect that this has a psychotic basis. Slept well overnight. Denies side effects from medications. No physical complaints. Review of Systems ROS Limitations: Psychotic, Poor Historian Except as stated in HPI: all other systems reviewed are Neg Mental Status Examination Appearance: Disheveled Consciousness: Alert Orientation: Person, Place (at least) Motor Activity: Normal gait, Other (no motor abnormalities noted) Speech: Other (somewhat terse and angry) Language: Adequate Fund of Knowledge: Adequate Attention and Concentration: Easily Distracted Memory: Impaired (psychosis likely interferes) Mood: Other (calm, less dysphoric) Affect: Blunt Thought Process & Associations: Tangential (disorganized at times) Thought Content: Bizarre thinking, Delusional Hallucination Type: Other (internally stimulated) Delusion Type: Paranoid Suicidal Ideation: No (unreliable to contract for safety) Suicidal Plan: No Suicidal Intention: No Homicidal Ideation: No (unreliable to contract for safety) Homicidal Plan: No Homicidal Intention: No Insight: Poor Judgment: Poor Results Labs Test 08/14/17 18:30 Urine Opiates Screen NEG Urine Barbiturates Screen NEG Urine Amphetamines Screen NEG Urine Benzodiazepines Screen NEG Urine Cocaine Screen NEG Urine Cannabinoids Screen NEG Labs reviewed. Extended urine toxicology pending. Vitals/IOs Vital Signs Date Time Temp Pulse Resp B/P (MAP) Pulse Ox O2 Delivery O2 Flow Rate FiO2 08/15/17 06:13 96.9 74 18 134/66 (88) 97 Assessment & Plan Problem List: (1) Schizophrenia, paranoid type ICD Codes: F20.0 - Paranoid schizophrenia Status: Acute Assessment & Plan Patient received initial dose of Invega Sustenna yesterday and is tolerating this medication well without side effects. Plan for booster dose after the weekend. Continue to monitor on the high acuity unit. Continue other medications and care as ordered. Justification for Cont. Inpt. Medication changes anticipated. Impairment in reality construction. High risk for decompensation and less restrictive environment. Discharge Planning Pending psychiatric stabilization. Request HC Surrog/Guard Advoc?: Yes Dominick Booth MD Aug 15, 2017 09:46
--- NOTE | 2017-08-15 10:56 | PD.TTN ---
Patient Problems 1. Discharge planning 2. Medication compliance 3. Knowledge deficit 4. Lack of coping skills Progress Toward Goals Provider Present: Dr. Michelle Booth Provider Input: 08/15/17 - Dr. Booth reported that he will initiate invega Sustaina today. Psychiatric Counselors Present: SARAN Jones Psych Therapist Input: 08/15/17 - Counselor will contact patient's family to obtain collateral information. Group Spec/RT/OT/WADSWORTH Present: MANJEET Nunez Group Spec/RT/OT/WADSWORTH Input: 08/15/17 - Patient is not participating in groups. Discharge Plan SMA 08/15/17 - Patient will be discharged home when deemed appropriate. Documentation Scribe: SARAN Jones Date Resolved: Aug 15, 2017 Alta Oh Aug 15, 2017 10:56
--- NOTE | 2017-08-15 13:28 | PD.PSY.CON ---
Provisional Diagnosis Admission Date Aug 13, 2017 at 06:40 Seg[place] I. 1. Schizophrenia, paranoid type, acute exacerbation Seg[place] II. Deferred History of Present Illness Service Psychiatry Consult Requested By Dr. Booth Reason for Consult Second opinion Primary Care Physician No Primary Care Physician HPI Mr. Cruz is a 37-year-old male with a history of schizophrenia who presents under a [place] act by law enforcement alleging that the patient went to his father's house and began yelling about killing them and himself. Patient allegedly told the officer that he has not been taking his prescribed medications. Reviewing the electronic medical record, I note that the patient was admitted most recently in November [address] Quigley, and he was stabilized on Risperdal and Geodon at that time.Patient seen and examined. Chart reviewed. Case discussed with nursing staff. On my examination this morning the patient presents as disheveled and sunburned. His fingernails are visibly dirty. He is irritable and is unable to tolerate extended interview. He denies audiovisual hallucinations but appears frankly internally stimulated. He denies any suicidal or homicidal ideation but seems unreliable to contract for safety. He is noted to be paranoid. He also seems to have a worship preoccupation. No other delusional material elicited. He does make odd statements at times, for example noting that I'm wearing eyeglasses he says "do you have your glasses on? Maybe that's why I can't talk to you." No mood symptoms elicited besides the irritability. The remainder of the psychiatric ROS is negative. The patient has no physical complaints. The patient is a 37 years old man, domicile in [facility] with his father , single, disabled, with psychiatric history of schizophrenia, schizoaffective disorder, multiple psychiatric hospitalizations, no significant medical history , who presents under a Stinson act by law enforcement alleging that the patient went to his father's house and began yelling about killing them and himself. Patient allegedly told the officer that he has not been taking his prescribed medications. Patient was consulted for second opinion. Psychotic evaluation today the patient is calm, cooperative, he says that he is happy to have a bed. He says that he was brought here by his father in order to have a place to sleep. The patient reports good mood, even though he presents little bit irritable, at times paranoid, he denies suicidal and homicidal ideation, visual and auditory hallucinations. The patient is oriented 3. Past Family Social History Coded Allergies: *MDRO Multi-Drug Resistant Organism (Verified Allergy, Unknown, 08/01/17) MRSA Active Scripts Paliperidone Palmitate Inj (Invega Sustenna Inj) 234 Mg/1.5 Ml Inj, 234 MG IM Q28D for Schizophrenia, #1 VIAL 0 Refills Next injection due 01/10 Prov:Agustin Quigley MD 12/20/16 Ziprasidone (Geodon) 80 Mg Cap, 80 MG PO 3 po hs for health, #90 CAP 0 Refills Prov:Agustin Quigley MD 12/20/16 Risperidone Odt (Risperdal M-Tab) 3 Mg Tab, 3 MG PO BID@ for health, #60 TAB 0 Refills Prov:Agustin Quigley MD 12/20/16 Reported Medications Aripiprazole (Abilify) 2 Mg Tab, MG PO DAILY, #30 TAB 0 Refills 08/13/17 Sertraline (Zoloft) 25 Mg Tab, MG PO DAILY, #30 TAB 0 Refills 08/13/17 Escitalopram (Lexapro) 5 Mg Tab, 5 MG PO DAILY, #30 TAB 0 Refills 10/30/16 Current Medications Medications (Trade) Dose Ordered Sig/Pati Route Start Time Stop Time Status Last Admin (Ativan) 1 mg Q6H PRN PO 08/13/17 21:00 (Ativan Inj) 1 mg Q6H PRN IM 08/13/17 21:00 (Tylenol) 650 mg Q4H PRN PO 08/13/17 21:00 (Milk Of Magnesia Liq) 30 ml DAILY PRN PO 08/13/17 21:00 (Mag-Al Plus Susp Liq) 30 ml Q6H PRN PO 08/13/17 21:00 Miscellaneous Information 1 HS T-DERMAL 08/13/17 21:00 08/14/17 21:00 (Habitrol 21 Mg Patch.24 Hr) 1 patch DAILY PRN T-DERMAL 08/14/17 09:00 08/15/17 08:55 (Haldol Inj) 5 mg Q6H PRN IM 08/14/17 08:00 (Benadryl) 50 mg Q6H PRN PO 08/14/17 08:00 (Benadryl Inj) 50 mg Q6H PRN IM 08/14/17 08:00 Patient's Strengths (min. 2) Supportive family. Verbally fluent. Physical Exam Vital Signs Vital Signs Date Time Temp Pulse Resp B/P (MAP) Pulse Ox O2 Delivery O2 Flow Rate FiO2 08/15/17 06:13 96.9 74 18 134/66 (88) 97 Lab Results Test 08/14/17 18:30 Urine Opiates Screen NEG Urine Barbiturates Screen NEG Urine Amphetamines Screen NEG Urine Benzodiazepines Screen NEG Urine Cocaine Screen NEG Urine Cannabinoids Screen NEG Mental Status Examination Appearance: Disheveled Consciousness: Alert Orientation: Person, Place (at least) Motor Activity: Normal gait, Other (no motor abnormalities noted) Speech: Other (somewhat terse and angry) Language: Adequate Fund of Knowledge: Adequate Attention and Concentration: Easily Distracted Memory: Impaired (psychosis likely interferes) Mood: Other (calm, less dysphoric) Affect: Blunt Thought Process & Associations: Tangential (disorganized at times) Thought Content: Bizarre thinking, Delusional Hallucination Type: Other (internally stimulated) Delusion Type: Paranoid Suicidal Ideation: No (unreliable to contract for safety) Suicidal Plan: No Suicidal Intention: No Homicidal Ideation: No (unreliable to contract for safety) Homicidal Plan: No Homicidal Intention: No Insight: Poor Judgment: Poor Assessment & Plan Problem List: (1) Schizophrenia, paranoid type ICD Codes: F20.0 - Paranoid schizophrenia Status: Acute Assessment & Plan: I have seen and examined this patient, review documentation , I agree and concur with Dr. Booth assessment and plan. Assessment & Plan Estimated LOS: days Request HC Surrog/Guard Advoc?: Yes Jeromy Montoya MD Aug 15, 2017 13:28
[2017-08-15 18:20] VITALS: BP 125/76; PULSE 102; RESP 18; TEMP 97.7; O2SAT 96
[2017-08-15] MEDS: REMOVE OLD NICOTINE PATCH T-DERMAL SCH (19:54)
[2017-08-16 05:57] VITALS: BP 123/70; PULSE 76; RESP 16; TEMP 97.5; O2SAT 98
[2017-08-16] MEDS ORDERED: INFLUENZA VIRUS VACCINE (QUADRIVALENT) 0.5 ML SYR IM ONE (10:00)
[2017-08-16] MEDS ORDERED: PNEUMOCOCCAL POLYVALENT INJ 25 MCG/0.5 ML SYR IM ONE (10:00)
--- NOTE | 2017-08-16 13:48 | HHI.PYPN ---
Subjective Chief Complaint: Psychosis Remarks Pt seen and discussed with staff. He has been cooperative and pleasant. He is frequently observed having rambling nonsensical conversation with himself. He exhibits bizarre mannerisms and states that he is waiting for "an oral septic cleanse pill". Mental Status Examination Appearance: Disheveled Consciousness: Alert Orientation: Person, Place (at least) Motor Activity: Normal gait, Other (no motor abnormalities noted) Speech: Other (somewhat terse and angry) Language: Neologism, Other (punctuates speech with odd clicking sounds) Fund of Knowledge: Adequate Attention and Concentration: Easily Distracted Memory: Impaired (psychosis likely interferes) Mood: Other (calm, less dysphoric) Affect: Blunt Thought Process & Associations: Tangential (disorganized at times) Thought Content: Bizarre thinking, Delusional Hallucination Type: Other (internally stimulated) Delusion Type: Bizarre, Paranoid Suicidal Ideation: No (unreliable to contract for safety) Suicidal Plan: No Suicidal Intention: No Homicidal Ideation: No (unreliable to contract for safety) Homicidal Plan: No Homicidal Intention: No Insight: Poor Judgment: Poor Results Vitals/IOs Vital Signs Date Time Temp Pulse Resp B/P (MAP) Pulse Ox O2 Delivery O2 Flow Rate FiO2 08/16/17 05:57 97.5 76 16 123/70 (87) 98 Assessment & Plan Problem List: (1) Schizophrenia, paranoid type ICD Codes: F20.0 - Paranoid schizophrenia Status: Acute Assessment & Plan Continue current tx plan. Estimated LOS: days Justification for Cont. Inpt. psychosis Request HC Surrog/Guard Advoc?: Yes Hailey Pinto MD Aug 16, 2017 13:48
[2017-08-16 18:15] VITALS: BP 130/78; PULSE 115; RESP 19; TEMP 97.8; O2SAT 98
[2017-08-16] MEDS: REMOVE OLD NICOTINE PATCH T-DERMAL SCH (21:00)
[2017-08-17 06:19] VITALS: BP 98/55; PULSE 75; RESP 20; TEMP 99.4; O2SAT 100
--- NOTE | 2017-08-17 10:48 | HHI.PYPN ---
Subjective Chief Complaint: Psychosis Remarks Pt seen and discussed with staff. He remains disorganzied with signiicant internal stimulation. He has been expressing paranoid ideations about family. He has been cooperative [facility] care and has not been agitated. He is cooperative with medications and denies side effects. He reports that sleep was better last night. Mental Status Examination Appearance: Disheveled Consciousness: Alert Orientation: Person, Place (at least) Motor Activity: Normal gait, Other (no motor abnormalities noted) Speech: Other (somewhat terse and angry) Language: Neologism, Other (punctuates speech with odd clicking sounds) Fund of Knowledge: Adequate Attention and Concentration: Easily Distracted Memory: Impaired (psychosis likely interferes) Mood: Anxious Affect: Blunt Thought Process & Associations: Tangential (disorganized at times) Thought Content: Bizarre thinking, Delusional Hallucination Type: Other (internally stimulated) Delusion Type: Bizarre, Paranoid Suicidal Ideation: No (unreliable to contract for safety) Suicidal Plan: No Suicidal Intention: No Homicidal Ideation: No (unreliable to contract for safety) Homicidal Plan: No Homicidal Intention: No Insight: Poor Judgment: Poor Results Vitals/IOs Vital Signs Date Time Temp Pulse Resp B/P (MAP) Pulse Ox O2 Delivery O2 Flow Rate FiO2 08/17/17 06:19 99.4 75 20 98/55 (69) 100 Assessment & Plan Problem List: (1) Schizophrenia, paranoid type ICD Codes: F20.0 - Paranoid schizophrenia Status: Acute Assessment & Plan Pt slowly improving. Continue curren tx plan. Estimated LOS: days Justification for Cont. Inpt. impairments in psychosis Request HC Surrog/Guard Advoc?: Yes Hailey Pinto MD Aug 17, 2017 10:48
[2017-08-17 16:30] VITALS: BP 133/79; PULSE 103; RESP 18; TEMP 99; O2SAT 98
[2017-08-17] MEDS: REMOVE OLD NICOTINE PATCH T-DERMAL SCH (20:31)
[2017-08-17] MEDS: diphenhydrAMINE HCL 50 MG CAP PO PRN (21:16)
[2017-08-18 06:19] VITALS: BP 101/58; PULSE 82; RESP 17; TEMP 98.2; O2SAT 97
--- NOTE | 2017-08-18 13:48 | HHI.PYPN ---
Subjective Chief Complaint: Psychosis Remarks Patient seen and examined with nurse. Chart reviewed. Case discussed with nursing staff. On my examination today, the patient remains fairly disorganized and rambling. He gestures in an odd fashion when surreptitiously observed. He denies AVH but remains internally preoccupied. Denies SI or HI. Denies side effects from medications. No physical complaints. Review of Systems ROS Limitations: Psychotic, Poor Historian Except as stated in HPI: all other systems reviewed are Neg Mental Status Examination Appearance: Disheveled Consciousness: Alert Orientation: Person, Place Motor Activity: Normal gait, Other (no hand tremor, no cogwheeling, no dystonia , no dyskinesia, no other motor abnormalities noted) Speech: Unremarkable Language: Adequate Fund of Knowledge: Adequate Attention and Concentration: Easily Distracted Memory: Impaired (psychosis likely interferes) Mood: Anxious Affect: Blunt Thought Process & Associations: Disorganized Thought Content: Bizarre thinking, Hallucinations, Delusional Hallucination Type: Other (internally stimulated) Delusion Type: Bizarre, Paranoid Suicidal Ideation: No (unreliable to contract for safety) Suicidal Plan: No Suicidal Intention: No Homicidal Ideation: No (unreliable to contract for safety) Homicidal Plan: No Homicidal Intention: No Insight: Poor Judgment: Poor Results Labs Labs reviewed. Extended urine toxicology pending. Vitals/IOs Vital Signs Date Time Temp Pulse Resp B/P (MAP) Pulse Ox O2 Delivery O2 Flow Rate FiO2 08/18/17 06:19 98.2 82 17 101/58 (72) 97 Assessment & Plan Problem List: (1) Schizophrenia, paranoid type ICD Codes: F20.0 - Paranoid schizophrenia Status: Acute Assessment & Plan Administer booster dose of Invega Sustenna today 156 mg IM. Continue to monitor on the high acuity unit. Continue other medications and care as ordered. Justification for Cont. Inpt. Impairment in reality construction. Medication changes. High risk for decompensation in less restrictive environment. Discharge Planning Pending psychiatric stabilization Request HC Surrog/Guard Advoc?: Yes Dominick Booth MD Aug 18, 2017 13:48
[2017-08-18] MEDS ORDERED: PALIPERIDONE PALMITATE 156 MG/ML SYRINGE IM ONE (14:00)
[2017-08-18 17:45] VITALS: BP 109/66; PULSE 91; RESP 17; TEMP 97.8; O2SAT 98
[2017-08-18] MEDS: diphenhydrAMINE HCL 50 MG CAP PO PRN (20:37)
[2017-08-18] MEDS: REMOVE OLD NICOTINE PATCH T-DERMAL SCH (21:00)
[2017-08-19 06:11] VITALS: BP 108/57; PULSE 73; RESP 18; TEMP 97.1; O2SAT 98
--- NOTE | 2017-08-19 09:35 | HHI.PYPN ---
Subjective Chief Complaint: Psychosis Remarks Patient seen and examined. Chart reviewed. Case discussed with nursing staff. Case discussed in treatment team. On my examination today, the patient seems generally more relevant in conversation. He tells me that he has nowhere to go and is agreeable to my offer to have the counselor help with some sort of placement. He does make bizarre statements at times, for example saying that he needs to "cut my mother off. I'm Italian, she's Kinyarwanda. It's a Ep[employer]op[employer] thing. " Received Invega Sustenna booster dose yesterday without incident. Denies side effects from medications now. No physical complaints. Review of Systems ROS Limitations: Poor Historian Except as stated in HPI: all other systems reviewed are Neg Mental Status Examination Appearance: Appropriate Consciousness: Alert Orientation: Person, Place Motor Activity: Normal gait, Other (no motor abnormalities noted) Speech: Unremarkable Language: Adequate Fund of Knowledge: Adequate Attention and Concentration: Easily Distracted Memory: Impaired (psychosis likely interferes) Mood: Appropriate Affect: Blunt Thought Process & Associations: Other (more linear today although with occasional tangents) Thought Content: Bizarre thinking, Delusional Hallucination Type: None, Other (internally stimulated) Delusion Type: None Suicidal Ideation: No Suicidal Plan: No Suicidal Intention: No Homicidal Ideation: No Homicidal Plan: No Homicidal Intention: No Insight: Poor Judgment: Poor Results Labs Labs reviewed. No new labs. Vitals/IOs Vital Signs Date Time Temp Pulse Resp B/P (MAP) Pulse Ox O2 Delivery O2 Flow Rate FiO2 08/19/17 06:11 97.1 73 18 108/57 (74) 98 Assessment & Plan Problem List: (1) Schizophrenia, paranoid type ICD Codes: F20.0 - Paranoid schizophrenia Status: Acute Assessment & Plan Monitor for response to Invega Sustenna therapy. Patient does seem to be slowly improving. Patient may sign voluntary. Continue to monitor on the inpatient unit. Continue other medications and care as ordered. Justification for Cont. Inpt. Resolving impairments in reality construction. Risk for decompensation in less restrictive environment. Discharge Planning ?Placement Request HC Surrog/Guard Advoc?: Yes Dominick Booth MD Aug 19, 2017 09:35
--- NOTE | 2017-08-19 09:43 | PD.TTN ---
Patient Problems 1. Discharge planning 2. Medication compliance 3. Knowledge deficit 4. Lack of coping skills Progress Toward Goals Provider Present: Dr. Michelle Booth Provider Input: 08/19/17 - Patient received his Invega Sustana booster injection yesterday. He remains paranoid and internally stimulated. 08/15/17 - Dr. Booth reported that he will initiate invega Sustaina today. Psychiatric Counselors Present: SARAN Jones Psych Therapist Input: 08/19/17 - Counselor will attempt to contact patient's mother and father for collateral information and to discuss discharge plans. 08/15/17 - Counselor will contact patient's family to obtain collateral information. Group Spec/RT/OT/WADSWORTH Present: MANJEET Nunez Group Spec/RT/OT/WADSWORTH Input: 08/19/17 - Patient is not participating in groups. 08/15/17 - Patient is not participating in groups. Discharge Plan SMA 08/15/17 - Patient will be discharged home when deemed appropriate. Documentation Scribe: SARAN Jones Date Resolved: Aug 19, 2017 Alta Oh Aug 19, 2017 09:43
[2017-08-19] MEDS: NICOTINE 21 MG/24 HR PATCH T-DERMAL PRN (10:27)
[2017-08-19 18:50] VITALS: BP 136/72; RESP 18; TEMP 98.3; O2SAT 99
[2017-08-19] MEDS: REMOVE OLD NICOTINE PATCH T-DERMAL SCH (21:00)
[2017-08-19] MEDS: diphenhydrAMINE HCL 50 MG CAP PO PRN (21:15)
[2017-08-20 06:06] VITALS: BP 145/65; PULSE 74; RESP 18; TEMP 98.1; O2SAT 98
--- NOTE | 2017-08-20 09:15 | HHI.PYPN ---
Subjective Chief Complaint: Psychosis Remarks Patient seen and examined. Chart reviewed. Case discussed with nursing staff. On my examination today, the patient presents as fairly organized. He is thankful for being on the inpatient psychiatric unit and apologizes for previous bad behavior, although I cannot recall any such behavior this admission and tell him as much. He denies any SI or HI. Denies any side effects from medications. No physical complaints. Remains interested in placement. I did offer to transfer the patient to the lower acuity unit, but he says that he feels more comfortable on the higher acuity unit and declines transfer. Review of Systems Except as stated in HPI: all other systems reviewed are Neg Mental Status Examination Appearance: Appropriate Consciousness: Alert Orientation: Person, Place Motor Activity: Normal gait, Other (no abnormal motor movements noted) Speech: Unremarkable Language: Adequate Fund of Knowledge: Adequate Attention and Concentration: Adequate Memory: Unremarkable Mood: Appropriate Affect: Appropriate Thought Process & Associations: Circumstantial Thought Content: Bizarre thinking Hallucination Type: None Delusion Type: None Suicidal Ideation: No Suicidal Plan: No Suicidal Intention: No Homicidal Ideation: No Homicidal Plan: No Homicidal Intention: No Insight: Poor Judgment: Poor Results Labs Labs reviewed. No new labs. Vitals/IOs Vital Signs Date Time Temp Pulse Resp B/P (MAP) Pulse Ox O2 Delivery O2 Flow Rate FiO2 08/20/17 06:06 98.1 74 18 145/65 (91) 98 Assessment & Plan Problem List: (1) Schizophrenia, paranoid type ICD Codes: F20.0 - Paranoid schizophrenia Status: Acute Assessment & Plan Patient tolerating Invega Sustenna well without side effects. He seems to be improving with this medication. Continue to monitor on the inpatient unit. Continue other medications and care as ordered. Justification for Cont. Inpt. Risk for decompensation in less restrictive environment. Discharge Planning Placement. Case discussed with counselor. Request HC Surrog/Guard Advoc?: Yes Dominick Booth MD Aug 20, 2017 09:15
[2017-08-20 16:04] VITALS: BP 101/55; PULSE 79; RESP 18; TEMP 96.9; O2SAT 98
[2017-08-20] MEDS: REMOVE OLD NICOTINE PATCH T-DERMAL SCH (21:00)
[2017-08-21 05:41] VITALS: BP 97/53; PULSE 67; RESP 16; TEMP 98.3; O2SAT 97
--- NOTE | 2017-08-21 10:39 | HHI.PYPN ---
Subjective Chief Complaint: Psychosis Remarks Patient seen and examined. Chart reviewed. Case discussed with nursing staff. No behavioral issues noted. On my examination today, the patient is in good spirits. Thought process is a little bit tangential. No hallucinations or delusions. No mood symptoms. Denies side effects from medications. No physical complaints. Remains agreeable to placement. Case discussed with counselor. Review of Systems ROS Limitations: Poor Historian Except as stated in HPI: all other systems reviewed are Neg Mental Status Examination Appearance: Appropriate Consciousness: Alert Orientation: Person, Place Motor Activity: Normal gait, Other (no motoric abnormalities appreciated) Speech: Unremarkable Language: Adequate Fund of Knowledge: Adequate Attention and Concentration: Adequate Memory: Unremarkable Mood: Appropriate, Good Affect: Appropriate, Euthymic Thought Process & Associations: Circumstantial (tangential at times) Thought Content: Bizarre thinking Hallucination Type: None Delusion Type: None Suicidal Ideation: No Suicidal Plan: No Suicidal Intention: No Homicidal Ideation: No Homicidal Plan: No Homicidal Intention: No Insight: Poor Judgment: Poor Results Labs Labs reviewed. No new labs. Vitals/IOs Vital Signs Date Time Temp Pulse Resp B/P (MAP) Pulse Ox O2 Delivery O2 Flow Rate FiO2 08/21/17 05:41 98.3 67 16 97/53 (68) 97 Assessment & Plan Problem List: (1) Schizophrenia, paranoid type ICD Codes: F20.0 - Paranoid schizophrenia Status: Acute Assessment & Plan Patient has received initial dose and a booster dose of Invega Sustenna. He continues to exhibit some modest thought process abnormalities. These might continue to improve with existing therapy, although I do note in the past he has been on multiple antipsychotics, during his most recent admission here Invega Sustenna and Geodon. To consider adding a low-dose of a second antipsychotic to augment the Invega Sustenna. Transfer to lower acuity unit. Continue other medications and care as ordered. Justification for Cont. Inpt. Risk for decompensation in less restrictive environment. Discharge Planning Counselor is working on placement for this patient. Request HC Surrog/Guard Advoc?: Yes Dominick Booth MD Aug 21, 2017 10:39
[2017-08-21 17:49] VITALS: BP 125/76; PULSE 89; RESP 18; TEMP 98.8
[2017-08-21] MEDS: REMOVE OLD NICOTINE PATCH T-DERMAL SCH (20:36)
[2017-08-22 05:28] VITALS: BP 107/59; PULSE 75; RESP 18; TEMP 97.5; O2SAT 96
--- NOTE | 2017-08-22 15:10 | HHI.PYPN ---
Subjective Chief Complaint: Psychosis Remarks Reviewed electronic medical record, labs, and discussed case with staff. Follow -up conducted and room with nurse present. Patient is a pleasant, soft-spoken, and childlike. He reports that he slept well last night has had a good appetite. He denies any suicidal ideation, homicidal ideation, auditory or visual hallucinations. He reports that he is family has not spoken to him or visited since his admission. He expressed concern about where he would live after discharge. Denies any physical complaints or side effects from medication at this time. Mental Status Examination Appearance: Appropriate Consciousness: Alert Orientation: Person, Place Motor Activity: Normal gait Speech: Unremarkable Language: Adequate Fund of Knowledge: Adequate Attention and Concentration: Adequate Memory: Unremarkable Mood: Appropriate, Good Affect: Appropriate, Euthymic Thought Process & Associations: Circumstantial (tangential at times) Thought Content: Bizarre thinking Hallucination Type: None Delusion Type: None Suicidal Ideation: No Suicidal Plan: No Suicidal Intention: No Homicidal Ideation: No Homicidal Plan: No Homicidal Intention: No Insight: Poor Judgment: Poor Results Vitals/IOs Vital Signs Date Time Temp Pulse Resp B/P (MAP) Pulse Ox O2 Delivery O2 Flow Rate FiO2 08/22/17 05:28 97.5 75 18 107/59 (75) 96 Assessment & Plan Problem List: (1) Schizophrenia, paranoid type ICD Codes: F20.0 - Paranoid schizophrenia Status: Acute Assessment & Plan Estimated LOS: Continue with treatment plan until psychiatrically stabilized. Case management will continue to work on the discharge plan. Justification for Cont. Inpt. Placing this patient in a lower level of care would likely result in his decompensation. Request HC Surrog/Guard Advoc?: Yes Erika Chapman Aug 22, 2017 15:10
[2017-08-22 17:44] VITALS: BP 119/57; PULSE 80; RESP 18; TEMP 97.7; O2SAT 97
[2017-08-22] MEDS: REMOVE OLD NICOTINE PATCH T-DERMAL SCH (21:00)
[2017-08-22] MEDS: diphenhydrAMINE HCL 50 MG CAP PO PRN (21:03)
[2017-08-23 05:40] VITALS: BP 113/56; PULSE 79; RESP 16; TEMP 97.9; O2SAT 98
[2017-08-23] MEDS: NICOTINE 21 MG/24 HR PATCH T-DERMAL PRN (08:29)
--- NOTE | 2017-08-23 14:12 | HHI.PYPN ---
Subjective Chief Complaint: Psychosis Remarks Patient was seen and case discussed with nursing. Patient signed right of release and after a discussion he rescinded that request. Thought process is flight of ideas with the pressured speech. He appears adamant to prove that he was never threatening before admission but resents a convoluted story. Insight is poor. Compliant with medications Mental Status Examination Appearance: Appropriate Consciousness: Alert Orientation: Person, Place Motor Activity: Normal gait Speech: Pressured Language: Adequate Fund of Knowledge: Adequate Attention and Concentration: Adequate Memory: Unremarkable Mood: Appropriate, Good Affect: Appropriate, Euthymic Thought Process & Associations: Other (flight of ideas) Thought Content: Bizarre thinking Hallucination Type: None Delusion Type: None Suicidal Ideation: No Suicidal Plan: No Suicidal Intention: No Homicidal Ideation: No Homicidal Plan: No Homicidal Intention: No Insight: Poor Judgment: Poor Results Vitals/IOs Vital Signs Date Time Temp Pulse Resp B/P (MAP) Pulse Ox O2 Delivery O2 Flow Rate FiO2 08/23/17 05:40 97.9 79 16 113/56 (75) 98 Assessment & Plan Problem List: (1) Schizophrenia, paranoid type ICD Codes: F20.0 - Paranoid schizophrenia Status: Acute Assessment & Plan Continue current treatment plan Justification for Cont. Inpt. Patient would decompensate in a less restrictive setting Request HC Surrog/Guard Advoc?: Yes Bertin Casarez DO Aug 23, 2017 14:12
[2017-08-23] MEDS: ACETAMINOPHEN 325 MG TAB PO PRN (14:24)
[2017-08-23 18:25] VITALS: BP 106/68; PULSE 86; RESP 16; TEMP 97.4; O2SAT 95
[2017-08-23] MEDS: REMOVE OLD NICOTINE PATCH T-DERMAL SCH (21:00)
[2017-08-23] MEDS: diphenhydrAMINE HCL 50 MG CAP PO PRN (21:17)
[2017-08-24 04:56] VITALS: BP 108/63; PULSE 72; RESP 18; TEMP 98; O2SAT 98
[2017-08-24] MEDS: NICOTINE 21 MG/24 HR PATCH T-DERMAL PRN (08:18)
--- NOTE | 2017-08-24 10:43 | HHI.PYPN ---
Subjective Chief Complaint: Psychosis Remarks Patient was seen and case discussed with nursing. Patient remains pressured and hyperverbal. When asked about voices he reiterated that he is "sober, and that is all I am going to say about that." Denies suicidal homicidal ideation intent or plan. Insight remains poor Mental Status Examination Appearance: Appropriate Consciousness: Alert Orientation: Person, Place Motor Activity: Normal gait Speech: Pressured Language: Adequate Fund of Knowledge: Adequate Attention and Concentration: Adequate Memory: Unremarkable Mood: Appropriate, Good Affect: Appropriate, Euthymic Thought Process & Associations: Other (flight of ideas) Thought Content: Bizarre thinking Hallucination Type: None Delusion Type: None Suicidal Ideation: No Suicidal Plan: No Suicidal Intention: No Homicidal Ideation: No Homicidal Plan: No Homicidal Intention: No Insight: Poor Judgment: Poor Results Vitals/IOs Vital Signs Date Time Temp Pulse Resp B/P (MAP) Pulse Ox O2 Delivery O2 Flow Rate FiO2 08/24/17 04:56 98.0 72 18 108/63 (78) 98 Assessment & Plan Problem List: (1) Schizophrenia, paranoid type ICD Codes: F20.0 - Paranoid schizophrenia Status: Acute Assessment & Plan Continue current treatment plan Justification for Cont. Inpt. Patient will decompensate in a less restrictive setting Request HC Surrog/Guard Advoc?: Yes Bertin Casarez DO Aug 24, 2017 10:43
[2017-08-24] MEDS: ACETAMINOPHEN 325 MG TAB PO PRN (14:08)
[2017-08-24 16:56] VITALS: BP 101/62; PULSE 81; RESP 18; TEMP 97.5; O2SAT 98
[2017-08-24] MEDS: REMOVE OLD NICOTINE PATCH T-DERMAL SCH (20:53)
[2017-08-25 05:34] VITALS: BP 114/67; PULSE 90; RESP 16; TEMP 98.1; O2SAT 98
[2017-08-25] MEDS: NICOTINE 21 MG/24 HR PATCH T-DERMAL PRN (08:32)
--- NOTE | 2017-08-25 13:20 | HHI.PYPN ---
Subjective Chief Complaint: Psychosis Remarks Patient seen and examined. Chart reviewed. Case discussed with nursing staff. No behavioral issues noted on the unit. Case discussed with counselor who continues to work on placement options for the patient. On my exam, the patient is calm and cooperative. He asks appropriate questions regarding his discharge plan and thought process in general seems fairly linear. No SI, HI or AVH. Denies side effects from medications. No physical complaints. Review of Systems Except as stated in HPI: all other systems reviewed are Neg Mental Status Examination Appearance: Appropriate Consciousness: Alert Orientation: Person, Place (at least) Motor Activity: Normal gait, Other (no motor abnormalities noted) Speech: Unremarkable Language: Adequate Fund of Knowledge: Adequate Attention and Concentration: Adequate Memory: Unremarkable Mood: Appropriate Affect: Appropriate Thought Process & Associations: Intact, Linear Thought Content: Appropriate Hallucination Type: None Delusion Type: None Suicidal Ideation: No Suicidal Plan: No Suicidal Intention: No Homicidal Ideation: No Homicidal Plan: No Homicidal Intention: No Mental Status Exam Remarks Insight and judgment are fair Results Labs Labs reviewed. No new labs. Vitals/IOs Vital Signs Date Time Temp Pulse Resp B/P (MAP) Pulse Ox O2 Delivery O2 Flow Rate FiO2 08/25/17 05:34 98.1 90 16 114/67 (83) 98 Assessment & Plan Problem List: (1) Schizophrenia, paranoid type ICD Codes: F20.0 - Paranoid schizophrenia Status: Acute Assessment & Plan Patient's psychotic symptoms appear fairly well-controlled with Invega Sustenna. Continue to monitor on the inpatient unit. Continue other medications and care as ordered. Justification for Cont. Inpt. Risk for decompensation in less restrictive environment. Discharge Planning Placement. Case discussed with counselor. Request HC Surrog/Guard Advoc?: Yes Dominick Booth MD Aug 25, 2017 13:20
[2017-08-25 17:48] VITALS: BP 104/61; PULSE 84; RESP 18; TEMP 98.4; O2SAT 99
[2017-08-25] MEDS: REMOVE OLD NICOTINE PATCH T-DERMAL SCH (21:00)
[2017-08-26 06:13] VITALS: BP 111/65; PULSE 70; RESP 16; TEMP 97.5
[2017-08-26] MEDS: NICOTINE 21 MG/24 HR PATCH T-DERMAL PRN (07:48)
[2017-08-26] MEDS: LORazepam 1 MG TAB PO PRN (07:50)
--- NOTE | 2017-08-26 11:16 | HHI.PYPN ---
Subjective Chief Complaint: Psychosis Remarks Patient seen and examined with nurse. Chart reviewed. Case discussed with nursing staff. No behavioral issues noted. Case discussed in treatment team. Possible placement soon at [facility]. On my examination today, the patient feels improved and ready to leave the hospital once placement has been arranged. He denies any SI or HI. Denies any AVH. Mood is "happy." Does describe some anticipatory anxiety associated with transition to facility. No side effects from medications. No physical complaints. Review of Systems Except as stated in HPI: all other systems reviewed are Neg Mental Status Examination Appearance: Appropriate Consciousness: Alert Orientation: Person, Place, Date/Time Motor Activity: Normal gait, Other (no abnormal motor movements noted) Speech: Unremarkable Language: Adequate Fund of Knowledge: Adequate Attention and Concentration: Adequate Memory: Unremarkable Mood: Appropriate Affect: Appropriate Thought Process & Associations: Intact, Logical, Linear Thought Content: Appropriate Hallucination Type: None Delusion Type: None Suicidal Ideation: No Suicidal Plan: No Suicidal Intention: No Homicidal Ideation: No Homicidal Plan: No Homicidal Intention: No Mental Status Exam Remarks Insight and judgment are fair Results Labs Labs reviewed. Vitals/IOs Vital Signs Date Time Temp Pulse Resp B/P (MAP) Pulse Ox O2 Delivery O2 Flow Rate FiO2 08/26/17 06:13 97.5 70 16 111/65 (80) 08/25/17 17:48 99 Assessment & Plan Problem List: (1) Schizophrenia, paranoid type ICD Codes: F20.0 - Paranoid schizophrenia Status: Acute Assessment & Plan Patient remains on Invega Sustenna. His next dose of this medication will be due on 09/15/17. Continue to monitor on an inpatient unit. Continue other medications and care as ordered. Justification for Cont. Inpt. Risk for decompensation in less restrictive environment. Discharge Planning Placement. Case discussed with counselor. Request HC Surrog/Guard Advoc?: No Dominick Booth MD Aug 26, 2017 11:16
[2017-08-26 18:13] VITALS: BP 110/64; PULSE 72; RESP 16; TEMP 98.1; O2SAT 98
[2017-08-26] MEDS: REMOVE OLD NICOTINE PATCH T-DERMAL SCH (19:54)
[2017-08-27 05:35] VITALS: BP 107/56; PULSE 69; RESP 18; TEMP 98.1; O2SAT 94
[2017-08-27 06:07] VITALS: BP 107/56; PULSE 69; RESP 18; TEMP 98.1; O2SAT 95
[2017-08-27] MEDS: NICOTINE 21 MG/24 HR PATCH T-DERMAL PRN (08:14)
[2017-08-27] MEDS: LORazepam 1 MG TAB PO PRN (08:41)
--- NOTE | 2017-08-27 08:50 | HHI.PYPN ---
Subjective Chief Complaint: Psychosis Remarks Patient seen and examined. Chart reviewed. Case discussed with nursing staff. No behavioral issues noted on the unit. On my exam today, patient is in good spirits. Patient was not accepted by [facility] and is aware of this but is hopeful for some sort of placement soon. No mood or psychotic symptoms, although I do note that he makes some odd hand gestures at times. No side effects from medications. No physical complaints. Review of Systems Except as stated in HPI: all other systems reviewed are Neg Mental Status Examination Appearance: Appropriate Consciousness: Alert Orientation: Person, Place, Date/Time Motor Activity: Normal gait Speech: Unremarkable Language: Adequate Fund of Knowledge: Adequate Attention and Concentration: Adequate Memory: Unremarkable Mood: Appropriate Affect: Appropriate Thought Process & Associations: Intact, Logical, Linear Thought Content: Appropriate Hallucination Type: None Delusion Type: None Suicidal Ideation: No Suicidal Plan: No Suicidal Intention: No Homicidal Ideation: No Homicidal Plan: No Homicidal Intention: No Mental Status Exam Remarks Insight and judgment are fair Results Labs Labs reviewed. No new labs. Vitals/IOs Vital Signs Date Time Temp Pulse Resp B/P (MAP) Pulse Ox O2 Delivery O2 Flow Rate FiO2 08/27/17 06:07 98.1 69 18 107/56 (73) 95 Assessment & Plan Problem List: (1) Schizophrenia, paranoid type ICD Codes: F20.0 - Paranoid schizophrenia Status: Acute Assessment & Plan Patient is doing well with Invega Sustenna. Continue to monitor on the inpatient unit. Continue other medications and care as ordered. Justification for Cont. Inpt. Risk for decompensation in less restrictive environment. Discharge Planning Placement Request HC Surrog/Guard Advoc?: No Dominick Booth MD Aug 27, 2017 08:50
[2017-08-27 17:53] VITALS: BP 100/55; PULSE 73; RESP 16; TEMP 98.6; O2SAT 93
[2017-08-27] MEDS: REMOVE OLD NICOTINE PATCH T-DERMAL SCH (20:43)
[2017-08-28 05:48] VITALS: BP 86/50; PULSE 79; RESP 18; TEMP 97.6; O2SAT 95
[2017-08-28 07:29] VITALS: BP 102/59; PULSE 76; RESP 18; TEMP 97.6; O2SAT 98
[2017-08-28] MEDS: NICOTINE 21 MG/24 HR PATCH T-DERMAL PRN (08:10)
[2017-08-28] MEDS: LORazepam 1 MG TAB PO PRN (08:22)
--- NOTE | 2017-08-28 08:25 | HHI.PYPN ---
Subjective Chief Complaint: Psychosis Remarks Patient seen and examined with nurse. Chart reviewed. Case discussed with nursing staff. No behavioral issues noted. Case discussed with counselor. [facility] is strongly considering the patient for admission there per counselor. Facility is requesting a screening chest x-ray. On my examination today, the patient tells me that he is "feeling pretty good." He denies any SI , HI or AVH. Looking forward to discharge to facility soon. No side effects from medications. No physical complaints. Review of Systems Except as stated in HPI: all other systems reviewed are Neg Mental Status Examination Appearance: Appropriate Consciousness: Alert Orientation: Person, Place, Date/Time Motor Activity: Normal gait, Other (no motor abnormalities noted) Speech: Unremarkable Language: Adequate Fund of Knowledge: Adequate Attention and Concentration: Adequate Memory: Unremarkable Mood: Appropriate Affect: Appropriate Thought Process & Associations: Intact, Logical, Linear Thought Content: Appropriate Hallucination Type: None Delusion Type: None Suicidal Ideation: No Suicidal Plan: No Suicidal Intention: No Homicidal Ideation: No Homicidal Plan: No Homicidal Intention: No Mental Status Exam Remarks Insight and judgment are fair. Results Labs Labs reviewed. No new labs. Vitals/IOs Vital Signs Date Time Temp Pulse Resp B/P (MAP) Pulse Ox O2 Delivery O2 Flow Rate FiO2 08/28/17 07:29 97.6 76 18 102/59 (73) 98 Assessment & Plan Problem List: (1) Schizophrenia, paranoid type ICD Codes: F20.0 - Paranoid schizophrenia Status: Acute Assessment & Plan Check screening chest x-ray. Continue to monitor on inpatient unit. Continue other medications and care as ordered. Justification for Cont. Inpt. Risk for decompensation in less restrictive environment. Discharge Planning Possible discharge tomorrow to [facility] Request HC Surrog/Guard Advoc?: No Dominick Booth MD Aug 28, 2017 08:25
--- NOTE | 2017-08-28 14:44 | RADRPT ---
EXAM DATE/TIME: 08/28/2017 14:18 [facility] COMPARISON: No previous studies available for comparison. INDICATIONS : Respiratory failure. MEDICAL HISTORY : None. SURGICAL HISTORY : None. ENCOUNTER: Initial ACUITY: 1 day PAIN SCORE: 0/10 LOCATION: Bilateral chest FINDINGS: A single view of the chest demonstrates the lungs to be symmetrically aerated without evidence of mas s, infiltrate or effusion. The cardiomediastinal contours are unremarkable. Osseous structures are intact. CONCLUSION: No acute disease. Vini Olmstead MD on August 28, 2017 at 14:42 Board Certified Radiologist. This report was verified electronically.
[2017-08-28 17:48] VITALS: BP 106/55; PULSE 80; RESP 14; TEMP 98.3; O2SAT 95
[2017-08-28] MEDS: REMOVE OLD NICOTINE PATCH T-DERMAL SCH (21:00)
[2017-08-29 05:20] VITALS: BP 104/59; PULSE 83; RESP 18; TEMP 97.8; O2SAT 98
[2017-08-29] MEDS: NICOTINE 21 MG/24 HR PATCH T-DERMAL PRN (08:58)
[2017-08-29] MEDS: LORazepam 1 MG TAB PO PRN (10:08)
[2017-08-29] MEDS ORDERED: PALI156P IM (11:16)
--- NOTE | 2017-08-29 11:17 | HHI.DS ---
Psychiatry Discharge Summary Inpatient Psychiatric care?: Yes Advance Directive: No Reason Not Provided: Due to Patient Condition Mental Health AdvanceDirective: No Health Care Proxy: No Admission Admission Date Aug 13, 2017 at 06:40 Admission Diagnosis: (1) Schizophrenia, paranoid type ICD Code: F20.0 - Paranoid schizophrenia Brief History Mr. Goodson is a 37-year-old male with a history of schizophrenia who presents under a [place] act by law enforcement alleging that the patient went to his father's house and began yelling about killing them and himself. Patient allegedly told the officer that he has not been taking his prescribed medications. Reviewing the electronic medical record, I note that the patient was admitted most recently in November [address] Quigley, and he was stabilized on Risperdal and Geodon at that time.Patient seen and examined. Chart reviewed. Case discussed with nursing staff. On my examination this morning the patient presents as disheveled and sunburned. His fingernails are visibly dirty. He is irritable and is unable to tolerate extended interview. He denies audiovisual hallucinations but appears frankly internally stimulated. He denies any suicidal or homicidal ideation but seems unreliable to contract for safety. He is noted to be paranoid. He also seems to have a roman catholic preoccupation. No other delusional material elicited. He does make odd statements at times, for example noting that I'm wearing eyeglasses he says "do you have your glasses on? Maybe that's why I can't talk to you." No mood symptoms elicited besides the irritability. The remainder of the psychiatric ROS is negative. The patient has no physical complaints. Tobacco Use In Past 30 Days: 5 or More Cigarettes/Day Alcohol Use: Never Hospital Course Patient was admitted to a locked, inpatient psychiatric unit. Appropriate precautions were in place throughout patient's hospital stay. Patient was seen and examined daily on the unit by psychiatry and also visited by counselor. Psychotropic medications were adjusted. Patient was started on long-acting injectable Invega Sustenna and received both the initial and booster dose on the unit. He had a robust, positive response to this medication. There was no evidence of any suicidality or homicidality on the inpatient unit. The patient remained in behavioral control and was successfully transitioned from the higher acuity unit to the lower acuity unit and tolerated the milieu of the lower acuity unit well. Counselor expended considerable effort in trying to arrange for placement for the patient in an assisted living facility, but in the end of the patient declined placement and wishes to go stay with friends in [place]. On the day of discharge: Patient seen and examined. Chart reviewed. Case discussed with nursing staff. No behavioral issues noted overnight. Case discussed in treatment team and recreation therapist notes that the patient is attending all the groups and is appropriate in groups. On my examination today, the patient is requesting discharge from the inpatient psychiatric unit today. He denies any suicidal or homicidal ideation, intent or plan on direct questioning and contracts for safety. Mood is "good" and I can elicit no depressive or hypomanic/manic symptoms at this time. He denies any audiovisual hallucinations. I can elicit no delusional material. He denies side effects from medications. Education regarding discharge medication regimen provided to the patient. No physical complaints. Suicide and violence risk assessment on day of discharge both suggest lower imminent risk, and the patient's level of function is adequate for outpatient care. Patient has maximized benefit from this inpatient psychiatric hospital stay. He is presently declining placement. He will be discharged today with psychiatric follow-up as arranged by counselor. Patient is also to follow-up with primary care. I have counseled the patient to abstain from any substances of abuse. I have counseled the patient regarding warning signs for need to return to the psychiatric emergency room as part of the general safety plan. Results Blood Pressure 104 / 59 Vital Signs Date Time Temp Pulse Resp B/P (MAP) Pulse Ox O2 Delivery O2 Flow Rate FiO2 08/29/17 05:20 97.8 83 18 104/59 (74) 98 Item Value Date Time White Blood Count 9.9 TH/MM3 08/13/17 0400 Hemoglobin 16.2 GM/DL 08/13/17 0400 Platelet Count 319 TH/MM3 08/13/17 0400 Sodium Level 141 MEQ/L 08/13/17 0400 Potassium Level 4.2 MEQ/L 08/13/17 0400 Chloride Level 106 MEQ/L 08/13/17 0400 Carbon Dioxide Level 30.0 MEQ/L 08/13/17 0400 Blood Urea Nitrogen 13 MG/DL 08/13/17 0400 Creatinine 0.96 MG/DL 08/13/17 0400 Estimat Glomerular Filtration Rate 89 ML/MIN 08/13/17 0400 Aspartate Amino Transf (AST/SGOT) 18 U/L 08/13/17 0400 Alanine Aminotransferase (ALT/SGPT) 21 U/L 08/13/17 0400 Alkaline Phosphatase 86 U/L 08/13/17 0400 Thyroid Stimulating Hormone 3rd Gen 2.400 uIU/ML 08/13/17 0400 Urine Opiates Screen NEG 08/14/17 1830 Urine Buprenorphine NEG 08/14/17 1830 Heroin Level NEG 08/14/17 1830 Oxycodone Level NEG 08/14/17 1830 Urine Methadone Level NEG 08/14/17 1830 Urine Hydromorphone Level NEG 08/14/17 1830 Urine Fentanyl Level NEG 08/14/17 1830 Urine Gabapentin NEG 08/14/17 1830 Urine Barbiturates Screen NEG 08/14/17 1830 Urine Phencyclidine (PCP) Level NEG 08/14/17 1830 Urine MDPV + Mephedrone NEG 08/14/17 1830 Urine Amphetamines Screen NEG 08/14/17 1830 Urine MDMA & Metabolites NEG 08/14/17 1830 Urine Benzodiazepines Screen NEG 08/14/17 1830 Urine Cocaine Screen NEG 08/14/17 1830 Urine Cannabinoids Screen NEG 08/14/17 1830 Urine Synthetic THC (K2) NEG 08/14/17 1830 Ethyl Alcohol Level LESS THAN 3 MG/DL 08/13/17 0400 Summary of Procedures None done Imaging Last Impressions Chest X-Ray 08/28/17 0000 Signed Impressions: Service Date/Time: August 14:18 - CONCLUSION: No acute disease. Vini Olmstead MD Pending results at discharge: No Medications # of Antipsychotic meds at D/C: 1 Approp Antipsych med options 1 - Minimum of three failed multiple trials of monotherapy. 2 - Documented plan to taper to monotherapy due to previous use of multiple meds OR cross-taper in progress at D/C. 3 - Documentation of augmentation of Clozapine. 4 - Justification other than those listed in allowable values 1-3, document here : Discharge Discharge Date: Aug 29, 2017 Discharge Diagnosis: (1) Schizophrenia, paranoid type Diagnosis: Principal (stable) ICD Code: F20.0 - Paranoid schizophrenia Status: Acute Pt Condition on Discharge: Stable Discharge Disposition: Discharge Home Discharge Instructions Diet Instructions: As Tolerated, No Restrictions Activities you can perform: Weight Bearing as Srikanth Scheduled Appointment: Red Alberto Vane Appointment Date: Sep 02, 2017 Appointment Time: 8am New Medications: Paliperidone Palmitate Inj (Invega Sustenna Inj) 156 Mg/Ml Inj 156 MG IM Q28D for Mental Health, #1 VIAL 0 Refills This dose of Invega Sustenna is due on 09/15/2017. Discontinued Medications: Aripiprazole (Abilify) 2 Mg Tab MG PO DAILY, #30 TAB 0 Refills Escitalopram (Lexapro) 5 Mg Tab 5 MG PO DAILY, #30 TAB 0 Refills Paliperidone Palmitate Inj (Invega Sustenna Inj) 234 Mg/1.5 Ml Inj 234 MG IM Q28D for Schizophrenia, #1 VIAL 0 Refills Next injection due 01/10 Risperidone Odt (Risperdal M-Tab) 3 Mg Tab 3 MG PO BID@08,18 for health, #60 TAB 0 Refills Sertraline (Zoloft) 25 Mg Tab MG PO DAILY, #30 TAB 0 Refills Ziprasidone (Geodon) 80 Mg Cap 80 MG PO 3 po hs for health, #90 CAP 0 Refills Discharge Time > 30 minutes Mental Status Examination Appearance: Appropriate Consciousness: Alert Orientation: x4 Motor Activity: Normal gait, Other (no hand tremor, no dystonia, no dyskinesia , no other motor abnormalities noted) Speech: Unremarkable Language: Adequate Fund of Knowledge: Adequate Attention and Concentration: Adequate Memory: Unremarkable Mood: Appropriate Affect: Appropriate Thought Process & Associations: Intact, Logical, Linear Thought Content: Appropriate Hallucination Type: None Delusion Type: None Suicidal Ideation: No Suicidal Plan: No Suicidal Intention: No Homicidal Ideation: No Homicidal Plan: No Homicidal Intention: No Mental Status Exam Remarks Insight and judgment are fair Discharge/Advance Care Plan Health Problems: (1) Schizophrenia, paranoid type Goals to promote your health * To prevent worsening of your condition and complications * To maintain your health at the optimal level Directions to meet your goals Take your medications as prescribed Follow your dietary instruction Follow activity as directed Keep your appointments as scheduled Take your immunizations and boosters as scheduled If your symptoms worsen call your PCP, if no PCP go to Urgent Care Center or Emergency Room For 24/7 questions related to your inpatient stay or results of tests pending at discharge, please contact Dr. Dominick Booth at Smoking is Dangerous to Your Health. Avoid second hand smoking Dominick Booth MD Aug 29, 2017 11:16
--- NOTE | 2017-08-29 13:07 | PD.TTN ---
Patient Problems 1. Discharge planning 2. Medication compliance 3. Knowledge deficit 4. Lack of coping skills Progress Toward Goals Provider Present: Dr. Michelle Booth Provider Input: 03/01/2018: Invega Sustana 08/19/17 - Patient received his Invega Sustana booster injection yesterday. He remains paranoid and internally stimulated. 08/15/17 - Dr. Booth reported that he will initiate invega Sustaina today. Nurse(s) Present: None present Psychiatric Counselors Present: Archana Neumann LCSW, Alta Oh, [facility] Psych Therapist Input: 08/29/2017: Placement needed 08/19/17 - Counselor will attempt to contact patient's mother and father for collateral information and to discuss discharge plans. 08/15/17 - Counselor will contact patient's family to obtain collateral information. Group Spec/RT/OT/[place]ORTH Present: MANJEET Nunez, Bar Whitehead, OT Group Spec/RT/OT/[place]OR[place] Input: 08/29/17: Patient has participated more in the group activities. Pt is pleasant, cooperative and always wants to help. 08/19/17 - Patient is not participating in groups. 08/15/17 - Patient is not participating in groups. Discharge Plan SMA 08/15/17 - Patient will be discharged home when deemed appropriate. Documentation Scribe: Dahlia Rosen [employer] Date Resolved: Aug 19, 2017 Dahlia Rosen Aug 29, 2017 13:07
== END 2017-08-29 13:06 | disposition home or self-care (01) | DRG 885 ==
LOC: NEPD 03:02 → NEDA 06:40 → H270 08:10 → H260 08-21 14:00
PROVIDERS: ADMIT Psychiatry & Neurology Psychiatry; ATTEND Psychiatry & Neurology Psychiatry
DX: F20.0 Paranoid schizophrenia (principal); Z91.14 Patient's other noncompliance with medication regimen; Z23 Encounter for immunization; Z72.0 Tobacco use; Z86.14 Personal history of Methicillin resistant Staphylococcus aureus infection
CPT/HCPCS: 71045; 80053; 80307; 84443; 85025; 90686; 90732; 93005; G0481; J2426; Q0163; Q2038

== ENCOUNTER 2017-09-08 16:59 | Emergency (ER) | payer MEDICARE, OTHER ==
[~2017-09-08 16:59] MED LIST changes: -GEOD80CA PO; -LEXA5TAB PO; +PALI156P IM; -PALI234P IM; -RISPM3 PO
[2017-09-08 17:15] VITALS: BP 144/67; PULSE 112; RESP 18; TEMP 97.9; O2SAT 100
--- NOTE | 2017-09-08 18:18 | PD ---
HPI Chief Complaint: Medical Clearance Time Seen by Provider: 17:37 Travel History International Travel<30 days: No Contact w/Intl Traveler<30days: No Traveled to known affect area: No History of Present Illness HPI 37-year-old male presents the ED requesting a place to stay. The patient states that he is currently homeless, has no money for a hotel room. He states that he was seen at [facility] and was provided with bus passes to come here. He denies any somatic complaints. History Past Medical Histgory Hx Cancer: No Social History Alcohol Use: No Tobacco Use: Yes (1 pk a day) Allergies-Medications (Allergen,Severity, Reaction): Coded Allergies: *MDRO Multi-Drug Resistant Organism (Verified Allergy, Unknown, 08/01/17) MRSA Reported Meds & Prescriptions Reported Meds & Active Scripts Active Invega Sustenna Inj (Paliperidone Palmitate) 156 Mg/Ml Inj 156 Mg IM Q28D This dose of Invega Sustenna is due on 09/15/2017. Review of Systems Except as stated in HPI: all other systems reviewed are Neg Physical Exam Narrative GENERAL: Well-nourished, well-developed white male in no acute distress. SKIN: Focused skin assessment warm/dry. Sunburn noted on the face. HEAD: Normocephalic. EYES: No scleral icterus. No injection or drainage. NECK: Supple, trachea midline. No JVD or lymphadenopathy. CARDIOVASCULAR: Regular rate and rhythm without murmurs, gallops, or rubs. RESPIRATORY: Breath sounds clear and equal bilaterally. No accessory muscle use. GASTROINTESTINAL: Abdomen soft, non-tender, nondistended. Active bowel sounds. MUSCULOSKELETAL: No cyanosis, or edema. Walks with a normal gait. BACK: Nontender without obvious deformity. No CVA tenderness. Data Data Last Documented VS Vital Signs Date Time Temp Pulse Resp B/P (MAP) Pulse Ox O2 Delivery O2 Flow Rate FiO2 09/08/17 17:15 97.9 112 18 144/67 (92) 100 MDM Medical Screen Exam Complete: Yes Emergency Medical Condition: No Narrative Course 37-year-old male presents to the ED requesting administrator social welfare. Patient states that he has run out of money and has no place to stay. He is currently homeless. He has no medical complaints. Vitals reviewed. His ankle exam is reassuring. The nurse allowed the patient to make a phone call to his father. His father has a friend in the area who will allow the patient to stay there overnight. This accommodation is within walking distance of the hospital. No medical emergency exists at this time. A medical screening exam was performed: At the time of evaluation the presenting medical condition was determined not to be of an emergent nature. The patient was given the option of receiving additional care, but declined. Patient was given options for additional community resources from which to obtain care. The Patient Has Been advised to seek medical attention for their presenting complaint. The patient has been advised to return to the ER at any time if an emergent condition develops. Primary Impression: Encounter for medical screening examination Patient Instructions: General Instructions Departure Forms: Tests/Procedures Condition: Stable Monique Corbett Sep 08, 2017 18:18
== END 2017-09-08 17:26 | disposition left against medical advice (07) ==
LOC: NED 16:59 → NETRI 17:26 → NEPK 17:26
DX: Z59.0 Homelessness (principal); F17.200 Nicotine dependence, unspecified, uncomplicated
CPT/HCPCS: 99281

== ENCOUNTER 2017-09-09 02:33 | Emergency (ER) | payer MEDICARE ==
[~2017-09-09] VITALS: Ht 180.3 cm; Wt 80.0 kg
[2017-09-09 02:54] VITALS: BP 113/56; PULSE 97; RESP 16; TEMP 98.2; O2SAT 97
--- NOTE | 2017-09-09 03:51 | PD ---
HPI Chief Complaint: Medical Clearance Time Seen by Provider: 03:41 Travel History International Travel<30 days: No Contact w/Intl Traveler<30days: No Traveled to known affect area: No History of Present Illness HPI This is a 37-year-old male with history of schizophrenia who presents requesting clarification on the medication that he recently received. He was admitted on August 13 for evaluation of schizophrenia, discharged on August 29. During his hospitalization he received an injection of invega sustenna and he comes in today wanting to know when his next injection is due. He reports that he follows at [facility] however he wanted to receive clarification on the injection prior to following up with them. He denies any suicidal or homicidal ideation, auditory or visual hallucination, drug or alcohol use. He does report also that he is homeless and would like some place to sleep. He has no other complaints at this time. History Past Medical Histgory Tetanus Vaccination: Unknown Hx Cancer: No Past Surgical History Surgical History: No Previous Surgery Social History Alcohol Use: No Tobacco Use: Yes (1 pk a day) Allergies-Medications (Allergen,Severity, Reaction): Coded Allergies: *MDRO Multi-Drug Resistant Organism (Verified Allergy, Unknown, 09/09/17) MRSA Reported Meds & Prescriptions Reported Meds & Active Scripts Active Invega Sustenna Inj (Paliperidone Palmitate) 156 Mg/Ml Inj 156 Mg IM Q28D This dose of Invega Sustenna is due on 09/15/2017. Review of Systems Except as stated in HPI: all other systems reviewed are Neg Physical Exam Narrative GENERAL: Somewhat disheveled male who was sleeping initially but easily arousable. He is polite and cooperative and responds appropriately to questions and commands. SKIN: Warm and dry. HEAD: Atraumatic. Normocephalic. EYES: Pupils equal and round. No scleral icterus. No injection or drainage. ENT: No nasal bleeding or discharge. Mucous membranes pink and moist. NECK: Trachea midline. No JVD. CARDIOVASCULAR: Regular rate and rhythm. No murmur appreciated. RESPIRATORY: No accessory muscle use. Clear to auscultation. Breath sounds equal bilaterally. GASTROINTESTINAL: Abdomen soft, non-tender, nondistended. Hepatic and splenic margins not palpable. MUSCULOSKELETAL: No obvious deformities. No clubbing. No cyanosis. No edema. NEUROLOGICAL: Awake and alert. No obvious cranial nerve deficits. Motor grossly within normal limits. Normal speech. PSYCHIATRIC: Appropriate mood and affect; insight and judgment normal. Data Data Last Documented VS Vital Signs Date Time Temp Pulse Resp B/P (MAP) Pulse Ox O2 Delivery O2 Flow Rate FiO2 09/09/17 02:54 98.2 97 16 113/56 (75) 97 MDM Medical Screen Exam Complete: Yes Emergency Medical Condition: No Narrative Course 37-year-old male presents requesting clarification on the medication that he recently received while on the inpatient psychiatric unit. He is calm and cooperative, he is not disorganized in his thought pattern. He is not suicidal homicidal or under the influences of any substances. He was informed that according to his discharge summary he is supposed to receive his next injection of invega on September 15 that started . He thanked me for this information. He does not require psychiatric hospitalization at this time. A medical screening exam was performed: At the time of evaluation the presenting medical condition was determined not to be of an emergent nature. The patient was given the option of receiving additional care, but declined. Patient was given options for additional community resources from which to obtain care. The Patient Has Been advised to seek medical attention for their presenting complaint. The patient has been advised to return to the ER at any time if an emergent condition develops. Primary Impression: Encounter for medical screening examination Edwardo Hager Sep 09, 2017 03:51
== END 2017-09-09 03:57 | disposition left against medical advice (07) ==
LOC: NEPD 02:33
DX: F20.9 Schizophrenia, unspecified (principal); Z59.0 Homelessness; Z72.0 Tobacco use
CPT/HCPCS: 99281